=== PATIENT | female | born 1955 | race Caucasian/White ===

== ENCOUNTER 2020-08-06 10:15 | Outpatient (REF) | payer MEDICARE, SELFPAY ==
[2020-08-06 12:12] LABS: Alanine Aminotransferase 30 U/L (0-31); Albumin Level 4.8 g/dL (3.5-5.0); Alkaline Phosphatase 55 U/L (39-117); Anion Gap 17 (12-20); Aspartate Amino Transferase 30 U/L (5-31); Bilirubin Total 0.4 mg/dL (0.0-1.0); Blood Urea Nitrogen 13 mg/dL (9-16); Carbon Dioxide 26 mmol/L (22-29); Chloride 94 mmol/L (96-108); Cholesterol 270 mg/dL; Estimated Glomerular Filt Rate > 60; Glucose Fasting 87 mg/dL (60-99); HDL Cholesterol 120 mg/dL; LDL Cholesterol Calculated 142 mg/dl; Sodium 132 mmol/L (135-145); Total Protein 7.6 g/dL (6.5-8.0); Triglycerides 40 mg/dL
== END 2020-08-06 10:16 | disposition home or self-care (01) ==
LOC: HO.HMGCLDS 10:15
PROVIDERS: PCP Internal Medicine; Visit Provider Internal Medicine
DX: F32.9 Major depressive disorder, single episode, unspecified (principal); E78.5 Hyperlipidemia, unspecified
CPT/HCPCS: 80053; 80061

== ENCOUNTER 2020-08-15 11:40 | Outpatient (REF) | payer MEDICARE, SELFPAY ==
[2020-08-15 14:39] LABS: Anion Gap 18 (12-20); Blood Urea Nitrogen 9 mg/dL (9-16); Calcium 9.6 mg/dL (8.4-10.2); Carbon Dioxide 26 mmol/L (22-29); Chloride 91 mmol/L (96-108); Estimated Glomerular Filt Rate > 60; Glucose Random 80 mg/dL (60-115); Potassium 4.9 mmol/l (3.3-5.1); Sodium 130 mmol/L (135-145)
== END 2020-08-15 11:41 | disposition home or self-care (01) ==
LOC: HO.HMGCLDS 11:40
PROVIDERS: PCP Internal Medicine; Visit Provider Internal Medicine
DX: E87.1 Hypo-osmolality and hyponatremia (principal)
CPT/HCPCS: 80048

== ENCOUNTER 2021-04-10 07:41 | Outpatient (REF) | payer MEDICARE, SELFPAY ==
--- NOTE | ~2021-04-10 | XR_ITS ---
EXAMINATION: XR PELVIS XR HIP, LEFT HIP CLINICAL INFORMATION: Left hip pain COMPARISON: CT abdomen and pelvis of 06/10/2018 TECHNIQUE: AP pelvis and 2 views of the left hip FINDINGS: There is no evidence of acute fracture or diastases of the pelvis. There is mild spurring of the sacroiliac joints without evidence of fusion or widening. Hip joint spaces appear maintained. No destructive bony lesion appreciated. Vascular calcifications are present. Two views of the left hip do not demonstrate any evidence of acute fracture or dislocation. Hip joint space appears maintained. No destructive lytic or sclerotic lesion identified. No evidence of femoral head collapse. Minimal spurring is present. XR/XR hip LT min 2V IMPRESSION: No significant bony abnormality of the pelvis or left hip identified.
--- NOTE | ~2021-04-10 | XR_ITS ---
EXAMINATION: XR PELVIS XR HIP, LEFT HIP CLINICAL INFORMATION: Left hip pain COMPARISON: CT abdomen and pelvis of 06/10/2018 TECHNIQUE: AP pelvis and 2 views of the left hip FINDINGS: There is no evidence of acute fracture or diastases of the pelvis. There is mild spurring of the sacroiliac joints without evidence of fusion or widening. Hip joint spaces appear maintained. No destructive bony lesion appreciated. Vascular calcifications are present. Two views of the left hip do not demonstrate any evidence of acute fracture or dislocation. Hip joint space appears maintained. No destructive lytic or sclerotic lesion identified. No evidence of femoral head collapse. Minimal spurring is present. XR/XR pelvis 1-2V IMPRESSION: No significant bony abnormality of the pelvis or left hip identified.
== END 2021-04-10 07:42 | disposition home or self-care (01) ==
LOC: HO.HOSX 07:41
PROVIDERS: Visit Provider Physician Assistant
DX: M54.30 Sciatica, unspecified side (principal); M70.62 Trochanteric bursitis, left hip; M16.12 Unilateral primary osteoarthritis, left hip; M25.552 Pain in left hip
CPT/HCPCS: 72170; 73502; 99202

== ENCOUNTER 2021-05-21 10:38 | Outpatient (REF) | payer MEDICARE, SELFPAY ==
--- NOTE | ~2021-05-21 | MM_ITS ---
EXAMINATION: MM SCREENING DIGITAL BREAST TOMOSYNTHESIS, BILATERAL CLINICAL INFORMATION: Screening. Asymptomatic. The lifetime risk of breast cancer based on the Tyrer-Cuzick Model is 2%. COMPARISON: Mammography: 04/04/2018 TECHNIQUE: Digital breast tomosynthesis is performed in both the craniocaudal and mediolateral oblique views along with computer-aided detection (CAD). Synthesized 2D images are generated from the tomosynthesis. FINDINGS: There are scattered areas of fibroglandular density (ACR BI-RADS breast composition Category b). Breast tissue composition borders on heterogeneously dense. Parenchymal pattern is similar to prior exam. There is no interval mass or architectural abnormality. No abnormal calcifications. The axilla and skin contours are unremarkable. MM/MM tomosynthesis screening BI IMPRESSION: No mammographic evidence of malignancy. ASSESSMENT: BI-RADS 1: Negative RECOMMENDATION: Routine annual mammography screening. This patient's information was entered into a reminder system with a target due date for their next mammogram.
== END 2021-05-21 10:39 | disposition home or self-care (01) ==
LOC: HO.MAMMO 10:38
PROVIDERS: PCP Internal Medicine; Visit Provider Internal Medicine
DX: Z12.31 Encounter for screening mammogram for malignant neoplasm of breast (principal)
CPT/HCPCS: 77063; 77067

== ENCOUNTER 2021-06-24 08:29 | Outpatient (REF) | payer MEDICARE, SELFPAY ==
[2021-06-24 12:36] LABS: Alanine Aminotransferase 23 U/L (0-31); Albumin Level 4.7 g/dL (3.5-5.0); Alkaline Phosphatase 58 U/L (39-117); Anion Gap 15 (12-20); Aspartate Amino Transferase 29 U/L (5-31); Bilirubin Total 0.4 mg/dL (0.0-1.0); Blood Urea Nitrogen 13 mg/dL (9-16); Carbon Dioxide 27 mmol/L (22-29); Chloride 97 mmol/L (96-108); Cholesterol 252 mg/dL; Estimated Glomerular Filt Rate > 60; Glucose Fasting 77 mg/dL (60-99); HDL Cholesterol 127 mg/dL; LDL Cholesterol Calculated 118 mg/dl; Potassium 4.9 mmol/L (3.3-5.1); Sodium 134 mmol/L (135-145); Total Protein 7.3 g/dL (6.5-8.0); Triglycerides 38 mg/dL
== END 2021-06-24 08:30 | disposition home or self-care (01) ==
LOC: HO.HMGCLDS 08:29
PROVIDERS: PCP Internal Medicine; Visit Provider Internal Medicine
DX: E78.5 Hyperlipidemia, unspecified (principal); F32.9 Major depressive disorder, single episode, unspecified
CPT/HCPCS: 36415; 80053; 80061

== ENCOUNTER 2022-02-12 08:28 | Outpatient (REF) | payer MEDICARE, SELFPAY ==
[2022-02-12 11:30] LABS: Hematocrit 38.3 % (37.0-47.0); Hemoglobin 12.7 g/dl (12.0-16.0); Mean Corpuscular HGB Conc 33.2 g/dl (31.0-35.0); Mean Corpuscular Hemoglobin 32.2 pg (27.0-33.0); Mean Corpuscular Volume 97.2 fL (80.0-98.0); Mean Platelet Volume 11.1 fL (9.4-12.3); Platelet Count 204 X10*3/uL (160-400); Red Blood Count 3.94 X10*6/uL (4.20-5.50); Red Cell Distribution Width 12.2 % (11.0-16.0); White Blood Count 5.4 X10*3/uL (4.8-10.8)
[2022-02-12 11:35] LABS: Appearance Urine CLEAR; Color Urine YELLOW; Glucose Urine UA NEG (NEG); Leukocyte Esterase Urine 1+ (NEG); Nitrite Urine NEG (NEG); Specific Gravity - Urine 1.015 (1.005-1.025); Urine Blood TRACE (NEG); Urine Ketones 5 MG/DL (NEG); Urine Protein NEG (NEG-TRACE)
[2022-02-12 12:09] LABS: Alanine Aminotransferase 28 U/L (0-31); Albumin Level 4.7 g/dL (3.5-5.0); Alkaline Phosphatase 51 U/L (39-117); Anion Gap 18 (12-20); Aspartate Amino Transferase 32 U/L (5-31); Bilirubin Total 0.5 mg/dL (0.0-1.0); Blood Urea Nitrogen 11 mg/dL (9-16); Calcium 10.2 mg/dL (8.4-10.2); Carbon Dioxide 25 mmol/L (22-29); Chloride 100 mmol/L (96-108); Cholesterol 250 mg/dL; Estimated Glomerular Filt Rate > 60; Glucose Fasting 79 mg/dL (60-99); HDL Cholesterol 112 mg/dL; LDL Cholesterol Calculated 128 mg/dl; Potassium 5.3 mmol/L (3.3-5.1); Sodium 138 mmol/L (135-145); Total Protein 7.5 g/dL (6.5-8.0); Triglycerides 51 mg/dL
[2022-02-12 12:25] LABS: TSH reflex Free T4 1.17 uIU/mL (0.32-4.0)
[2022-02-12 13:49] LABS: Squamous Epithelial Cell Urine 1+ /LPF
== END 2022-02-12 08:29 | disposition home or self-care (01) ==
LOC: HO.HMGCLDS 08:28
PROVIDERS: Visit Provider Internal Medicine
DX: E87.1 Hypo-osmolality and hyponatremia (principal); E78.5 Hyperlipidemia, unspecified
CPT/HCPCS: 36415; 80053; 80061; 81001; 84443; 85027

== ENCOUNTER 2022-02-20 12:51 | Outpatient (REF) | payer MEDICARE, SELFPAY ==
--- NOTE | ~2022-02-20 | CT_ITS ---
EXAMINATION: CT CHEST SCREENING CLINICAL INFORMATION: Former smoker COMPARISON: Previous chest CT May 2020 TECHNIQUE: Multidetector volumetric CT imaging of the chest is performed without contrast using low dose technique. Additional 2D coronal and sagittal reformatted images and axial 3D maximum intensity projection (MIP) images are generated on the CT workstation. This CT examination was performed using dose optimization techniques as appropriate, variously including the following: *Automated exposure control *Adjustment of mA and/or kV according to patient size (this includes techniques or standardized protocols for targeted exams where dose is matched to indication/reason for exam; i.e. extremities or head) *Use of iterative reconstruction technique DLP: 36 mGy-cm FINDINGS: LUNGS: There is evidence of emphysema. There is bilateral apical pleural and parenchymal scarring, right greater than left, that is stable. There is a 3 mm peripheral or subpleural left upper lobe nodule axial image 94 series 5. There is a 4 mm peripheral or subpleural right lower lobe nodule adjacent to the major fissure axial image 227 series 5. There is a new 1 cm triangular-shaped abnormal parenchymal density axial image 281 series 5 seen in the anterior right upper middle lobe and small clustered peribronchial nodules or tree-in-bud appearance. This is new finding from 2020 exam. No endobronchial or endotracheal lesion MEDIASTINUM: The mediastinum is normal. PLEURA: There is no pleural effusion. No pleural mass or thickening. AXILLA: No lymphadenopathy. UPPER ABDOMEN: Unremarkable OSSEOUS STRUCTURES: There are degenerative changes of the spine. CT/CT lung screening IMPRESSION: Emphysema. New 1 cm triangular-shaped abnormal parenchymal density and clustered peribronchial nodules or tree-in-bud appearance. Probably represents infectious or inflammatory process/airways disease. Otherwise stable small pulmonary nodules. ASSESSMENT: Lung-RADS category 3: Probably Benign RECOMMENDATION: Six-month low-dose chest CT follow-up recommended.
== END 2022-02-20 12:52 | disposition home or self-care (01) ==
LOC: HO.CT 12:51
PROVIDERS: PCP Internal Medicine; Visit Provider Physician Assistant Medical
DX: Z12.2 Encounter for screening for malignant neoplasm of respiratory organs (principal); Z87.891 Personal history of nicotine dependence
CPT/HCPCS: 71271

== ENCOUNTER 2022-05-25 10:24 | Outpatient (REF) | payer MEDICARE, SELFPAY ==
--- NOTE | ~2022-05-25 | MM_ITS ---
EXAMINATION: MM SCREENING DIGITAL BREAST TOMOSYNTHESIS, BILATERAL CLINICAL INFORMATION: Screening. Asymptomatic. The lifetime risk of breast cancer based on the Tyrer-Cuzick Model is 2.8%. COMPARISON: Mammography: May 21, 2021 and April 04, 2018 TECHNIQUE: Digital breast tomosynthesis is performed in both the craniocaudal and mediolateral oblique views along with computer-aided detection (CAD). Synthesized 2D images are generated from the tomosynthesis. FINDINGS: The breasts are heterogeneously dense, which may obscure small masses (ACR BI-RADS breast composition Category c). There are no significant masses, abnormal calcifications, or other abnormalities. MM/MM tomosynthesis screening BI IMPRESSION: No significant changes ASSESSMENT: BI-RADS 1: Negative RECOMMENDATION: Routine annual mammography screening. This patient's information was entered into a reminder system with a target due date for their next mammogram.
== END 2022-05-25 10:25 | disposition home or self-care (01) ==
LOC: HO.MAMMO 10:24
PROVIDERS: PCP Internal Medicine; Visit Provider Internal Medicine
DX: Z12.31 Encounter for screening mammogram for malignant neoplasm of breast (principal)
CPT/HCPCS: 77063; 77067

== ENCOUNTER 2023-02-17 07:58 | Outpatient (REF) | payer MEDICARE, SELFPAY ==
[2023-02-17 11:58] LABS: Hematocrit 38.8 % (37.0-47.0); Hemoglobin 13.3 g/dl (12.0-16.0); Mean Corpuscular HGB Conc 34.3 g/dl (31.0-35.0); Mean Corpuscular Hemoglobin 32.8 pg (27.0-33.0); Mean Corpuscular Volume 95.6 fL (80.0-98.0); Mean Platelet Volume 10.9 fL (9.4-12.3); Platelet Count 208 X10*3/uL (160-400); Red Blood Count 4.06 X10*6/uL (4.20-5.50); Red Cell Distribution Width 11.9 % (11.0-16.0); White Blood Count 5.3 X10*3/uL (4.8-10.8)
[2023-02-17 13:12] LABS: Alanine Aminotransferase 53 U/L (0-31); Albumin Level 4.8 g/dL (3.5-5.0); Alkaline Phosphatase 55 U/L (39-117); Anion Gap 15 (12-20); Aspartate Amino Transferase 59 U/L (5-31); Bilirubin Total 0.5 mg/dL (0.0-1.0); Blood Urea Nitrogen 12 mg/dL (9-16); Carbon Dioxide 26 mmol/L (22-29); Chloride 97 mmol/L (96-108); Cholesterol 257 mg/dL; Estimated Glomerular Filt Rate > 60; Glucose Fasting 81 mg/dL (60-99); HDL Cholesterol 112 mg/dL; LDL Cholesterol Calculated 131 mg/dl; Potassium 4.7 mmol/L (3.3-5.1); Sodium 133 mmol/L (135-145); Total Protein 7.5 g/dL (6.5-8.0); Triglycerides 71 mg/dL
[2023-02-17 13:17] LABS: TSH reflex Free T4 1.36 uIU/mL (0.32-4.0); Vitamin D 25-OH Total 79.2 ng/mL (>30)
== END 2023-02-17 07:59 | disposition home or self-care (01) ==
LOC: HO.HMGCLDS 07:58
PROVIDERS: PCP Internal Medicine; Visit Provider Internal Medicine
DX: Z00.00 Encounter for general adult medical examination without abnormal findings (principal); E55.9 Vitamin D deficiency, unspecified; E78.5 Hyperlipidemia, unspecified
CPT/HCPCS: 36415; 80053; 80061; 82306; 84443; 85027

== ENCOUNTER 2023-02-24 10:04 | Outpatient (REF) | payer MEDICARE, SELFPAY ==
--- NOTE | ~2023-02-24 | XR_ITS ---
EXAMINATION: XR KNEE, RIGHT CLINICAL INFORMATION: Pain COMPARISON: None available. TECHNIQUE: Four views of the right knee. FINDINGS: The tricompartment joint space is maintained normal. There is mild suprapatellar joint effusion. No loose bodies or bony erosive changes. No fracture or lytic process. Small anterior suprapatella enthesophyte seen. XR/XR knee RT 4V IMPRESSION: Mild suprapatellar joint effusion. No visible acute fracture, dislocation or subluxation seen.
[2023-02-24 12:50] LABS: Anion Gap 17 (12-20); Blood Urea Nitrogen 8 mg/dL (9-16); Calcium 9.9 mg/dL (8.4-10.2); Carbon Dioxide 24 mmol/L (22-29); Chloride 93 mmol/L (96-108); Estimated Glomerular Filt Rate > 60; Glucose Random 77 mg/dL (60-115); Potassium 4.8 mmol/L (3.3-5.1); Sodium 129 mmol/L (135-145)
== END 2023-02-24 10:05 | disposition home or self-care (01) ==
LOC: HO.HMGCX 10:04
PROVIDERS: PCP Internal Medicine; Visit Provider Internal Medicine
DX: F32.9 Major depressive disorder, single episode, unspecified (principal); E78.5 Hyperlipidemia, unspecified; E87.1 Hypo-osmolality and hyponatremia; M25.561 Pain in right knee
CPT/HCPCS: 36415; 73564; 80048

== ENCOUNTER 2023-04-19 08:06 | Outpatient (REF) | payer MEDICARE, SELFPAY ==
[2023-04-19 12:21] LABS: Alanine Aminotransferase 96 U/L (0-31); Albumin Level 4.6 g/dL (3.5-5.0); Alkaline Phosphatase 54 U/L (39-117); Anion Gap 17 (12-20); Aspartate Amino Transferase 82 U/L (5-31); Bilirubin Total 0.5 mg/dL (0.0-1.0); Blood Urea Nitrogen 9 mg/dL (9-16); Calcium 10.4 mg/dL (8.4-10.2); Carbon Dioxide 26 mmol/L (22-29); Chloride 97 mmol/L (96-108); Cholesterol 258 mg/dL; Estimated Glomerular Filt Rate > 60; Glucose Fasting 84 mg/dL (60-99); Glucose Random 84 mg/dL (60-115); HDL Cholesterol 114 mg/dL; LDL Cholesterol Calculated 133 mg/dl; Potassium 4.5 mmol/L (3.3-5.1); Sodium 135 mmol/L (135-145); Total Protein 7.7 g/dL (6.5-8.0); Triglycerides 56 mg/dL
[2023-04-19 12:46] LABS: HBc Num1 0.08 S/CO (0.00-0.79); HBsAGNum1 0.38 S/CO (0.00-0.99); Hepatitis B Core Antibody Nonreactive (Nonreactive); Hepatitis B Surface Antigen Negative (Negative); ~HepC Num1 0.06 S/CO (0.00-0.79); ~Hepatitis B Surface Antibody NONREACTIVE (Nonreactive); ~Hepatitis C Antibody Nonreactive (Nonreactive)
== END 2023-04-19 08:07 | disposition home or self-care (01) ==
LOC: HO.HMGCLDS 08:06
PROVIDERS: PCP Internal Medicine; Visit Provider Internal Medicine
DX: E87.1 Hypo-osmolality and hyponatremia (principal); F32.9 Major depressive disorder, single episode, unspecified; E78.5 Hyperlipidemia, unspecified
CPT/HCPCS: 36415; 80048; 80053; 80061; 86704; 86706; 86803; 87340

== ENCOUNTER 2023-04-26 11:13 | Outpatient (AMB) | payer MEDICARE, SELFPAY ==
[2023-04-26 11:18] VITALS: BP 124/74; PULSE 78; O2SAT 95; BMI 22.3
--- NOTE | 2023-04-26 11:18 | MHC.PC.OV ---
Vital Signs 04/26/23 11:18 Height 5 ft 3 in Weight 126 lb BMI 22.3 BP 124/74 Blood Pressure Location Lt brachial Position Sitting Pulse 78 Pulse Source Pulse Oximeter Pulse Oximetry (%) 95 Oxygen Delivery Method Room Air Oxygen Flow Rate 0 Intake Visit Reasons: 2 Month follow up Hyperlipidemia Allergies No Known Allergies [No Known Allergies*] Allergy (Verified 04/26/23 11:18) Medication List - Last Reconciled 04/26/23 by Nataliia Christine MD cetirizine 10 mg PO DAILY fluoxetine 20 mg PO QAM rosuvastatin (Crestor) 20 mg PO DAILY Tobacco use date assessed: 04/26/23 Fall risk assessment: No Falls in past year Last assessed Fall Risk: 04/26/23 Dental Screening Dental Screen Date: 04/26/23 Did you have a dental visit in the last 12 months?: Yes Did you have a dental problem in the last 6 months where you did not have access to dental care?: No Was dental information given to patient?: No HPI 2 Month follow up Hyperlipidemia HPI Details Pt presents for f/u hyperlipidemia and chronic anxiety depression stable on current medications. Patient crease dose of Crestor to 20 mg but has been eating red meat at least 3 times a week and there is no significant change in total cholesterol PFSH Medical History Depression Emphysema of lung GERD (gastroesophageal reflux disease) Hyperlipemia Hyponatremia Mammogram normal Normal Pap smear Osteopenia (~2017) Personal history of nicotine dependence Tobacco consumption Vitamin D deficiency Surgical History History of bunionectomy (~2009) History of colonoscopy Family History Father No problems noted. Mother No problems noted. Brother Hx of CABG Brother No problems noted. Social History Housing: House Alcohol intake: current Alcohol intake frequency: a few times a week Patient Tobacco Use Status: Never used Tobacco e-Cigarette/Vaping Use: Never Used service: No Current occupational status: retired Current occupation: rt handed Cognitive needs: No Hearing needs: No Vision needs: Yes Questionnaire AUDIT C Alcohol Use Questionnaire (AUDIT-C) 1. How often do you have a drink containing alcohol?: Monthly or less 2. How many drinks containing alcohol do you have on a typical day when you are drinking?: 1 or 2 3. How often do you have six or more drinks on one occasion?: Never Total Score: 1 Score Reviewed/Action Taken: Yes Review of Systems Const All systems reviewed & are unremarkable except as noted in HPI and below Reports no additional complaints Eyes Reports no additional complaints ENT Reports no additional complaints Card Reports no additional complaints Resp Reports no additional complaints GI Reports no additional complaints Reports no additional complaints Physical exam (Primary Care) Vital Signs: Last Vital Signs Pulse 78 04/26/23 11:18 BP 124/74 04/26/23 11:18 Pulse Ox 95 04/26/23 11:18 Oxygen Delivery Method Room Air 04/26/23 11:18 Oxygen Flow Rate 0 04/26/23 11:18 BMI result Body Mass Index 22.3 Tobacco/Smoking Status: Tobacco use Status Tobacco use date assessed 04/26/23 04/26/23 11:20 Patient Tobacco Use Status Never used Tobacco 04/26/23 11:22 e-Cigarette/Vaping Use Never Used 04/26/23 11:22 Const General: no acute distress Neck Neck: Yes supple Resp Effort & Inspection: normal respiratory effort Auscultation: diminished lung sounds Cardio Rhythm: regular rhythm Heart sounds: S1 normal heart sound present and S2 normal heart sound present GI Inspection: Yes normal to inspection Palpation (GI): Soft to palpation Auscultation: normal bowel sounds Assessment and Plan Assessment & Plan (1) Liver enzyme elevation: Code(s): R74.8 - Abnormal levels of other serum enzymes Plan: For borderline elevated LFTs ultrasound will be obtained patient was advised to stop [id number] NSAIDs and Tylenol and avoid alcohol. LFTs will be rechecked in 3 months (2) Hyperlipemia: Code(s): E78.5 - Hyperlipidemia, unspecified Plan: Continue Crestor and low-cholesterol diet recheck lipid profile in 3 months (3) Osteopenia: Onset Date: ~2017 Comment: (Bone Dexa Femoral T-score -1.7 in 2018, -2.0 in 2020) Code(s): M85.80 - Other specified disorders of bone density and structure, unspecified site Plan: Continue regular exercise (4) Vitamin D deficiency: Code(s): E55.9 - Vitamin D deficiency, unspecified (5) Anxiety: Code(s): F41.9 - Anxiety disorder, unspecified Plan: cont Fluoxetine, f/u in January for PE Orders: Orders US abdomen complete Today R74.8 - Abnormal levels of other serum enzymes Comprehensive [place]. Panel Fast 3 Months E78.5 - Hyperlipidemia, unspecified, R74.8 - Abnormal levels of other serum enzymes Lipid Panel 3 Months E78.5 - Hyperlipidemia, unspecified, R74.8 - Abnormal levels of other serum enzymes Hepatitis B,C Profile 3 Months E78.5 - Hyperlipidemia, unspecified, R74.8 - Abnormal levels of other serum enzymes Comprehensive [place]. Panel Fast 01/17/24 E55.9 - Vitamin D deficiency, unspecified, E78.5 - Hyperlipidemia, unspecified, M85.80 - Other specified disorders of bone density and structure, unspecified site, R74.8 - Abnormal levels of other serum enzymes Lipid Panel 01/17/24 E55.9 - Vitamin D deficiency, unspecified, E78.5 - Hyperlipidemia, unspecified, M85.80 - Other specified disorders of bone density and structure, unspecified site, R74.8 - Abnormal levels of other serum enzymes TSH reflex Free T4 01/17/24 E55.9 - Vitamin D deficiency, unspecified, E78.5 - Hyperlipidemia, unspecified, M85.80 - Other specified disorders of bone density and structure, unspecified site, R74.8 - Abnormal levels of other serum enzymes Complete Blood Count Auto Diff 01/17/24 E55.9 - Vitamin D deficiency, unspecified, E78.5 - Hyperlipidemia, unspecified, M85.80 - Other specified disorders of bone density and structure, unspecified site, R74.8 - Abnormal levels of other serum enzymes Vitamin D 25-OH Total 01/17/24 E55.9 - Vitamin D deficiency, unspecified, E78.5 - Hyperlipidemia, unspecified, M85.80 - Other specified disorders of bone density and structure, unspecified site, R74.8 - Abnormal levels of other serum enzymes Medications: Discontinued rosuvastatin (Crestor) Discontinued Reason: Doctor's Order 10 mg PO DAILY 90 tabs 3RF Coding Level of Care Code Est Pt Level 4 (11766) Diagnoses Liver enzyme elevation R74.8 Hyperlipemia E78.5 Osteopenia M85.80 Vitamin D deficiency E55.9 Anxiety F41.9
== END 2023-04-26 12:12 | disposition home or self-care (01) ==
PROVIDERS: PCP Internal Medicine; Visit Provider Internal Medicine
DX: R74.8 Abnormal levels of other serum enzymes (principal); E78.5 Hyperlipidemia, unspecified; F41.9 Anxiety disorder, unspecified; E55.9 Vitamin D deficiency, unspecified; M85.80 Other specified disorders of bone density and structure, unspecified site
CPT/HCPCS: 99214

== ENCOUNTER 2023-05-27 09:07 | Outpatient (REF) | payer MEDICARE, SELFPAY ==
--- NOTE | ~2023-05-27 | MM_ITS ---
EXAMINATION: BONE DENSITOMETRY CLINICAL INDICATION: Other specified disorders of bone density and structure, unspecified site. COMPARISON: Previous BD dated 06/07/2020 and baseline BD dated 05/24/2018. TECHNIQUE: Using a 1EQ DXA System (software version: 13.1) manufactured by [employer], dual-energy x-ray absorptiometry was performed of the lumbar spine and left hip. The images are of good technical quality. Summary results are attached. FINDINGS: AP SPINE L1-L4: Current: BMD 1.088 g/cm2, Z-score 1.2, T-score -0.8, normal, 0.3% increase from previous, 2.0% increase from baseline (<5% change is not significant). Prior: BMD 1.085 g/cm2. Baseline: BMD 1.067 g/cm2. LEFT FEMUR, NECK: Current: BMD 0.764 g/cm2, Z-score -0.1, T-score -2.0, osteopenia. Prior: BMD 0.755 g/cm2. Baseline: BMD 0.807 g/cm2. LEFT FEMUR, TOTAL: Current: BMD 0.867 g/cm2, Z-score 0.6, T-score -1.1, osteopenia, 1.9% decrease from previous, 2.0% decrease from baseline (<5% change is not significant). Prior: BMD 0.884 g/cm2. Baseline: BMD 0.885 g/cm2. IDENTIFIED RISK FACTORS: Parental hip fracture. Menopause. HISTORY OF FRACTURE: None listed. MEDICATIONS: Calcium supplement and/or multivitamin. MM/XR DEXA axial skeleton IMPRESSION: 1. DIAGNOSIS: Osteopenia based on the lowest T-score value of -2.0 in the femoral neck applying World Health Organization criteria. 2. 10-YEAR FRACTURE RISK PREDICTION, FRAX: Major osteoporotic fracture (clinical spine, forearm, hip or shoulder) 18.1%. Hip fracture 4.8%. 3. Treatment Recommendations: NOF guidelines recommend consideration for treatment in postmenopausal women and men age 50 and older presenting with the following: -A hip or vertebral (clinical or morphometric) fracture. -T-score less than or equal to -2.5 at the femoral neck or spine after appropriate evaluation to exclude secondary causes. -Low bone mass at the hip or spine and a 10-year fracture probability by FRAX of greater than or equal to 3% for hip fracture or greater than or equal to 20% for major osteoporotic fracture based on the [place] adapted WHO algorithm. 4. Other Recommendations: All treatment decisions require clinical judgment and consideration of individual patient factors, including patient preferences, comorbidities, previous drug use, risk factors not captured in the FRAX model (e.g. frailty, falls, vitamin D deficiency, increased bone turnover, interval significant decline in bone density) and possible under or overestimation of fracture risk by FRAX. Additional medical evaluation for secondary cause of low bone mineral density may be appropriate. FUTURE SCAN RECOMMENDATION: People with diagnosed cases of osteoporosis or at high risk for fracture should have regular bone mineral density tests. For patients eligible for Medicare, routine testing is allowed once every 2 years. The testing frequency can be increased to one year for patients who have rapidly progressing disease, those who are receiving or discontinuing medical therapy to restore bone mass, or have additional risk factors.
== END 2023-05-27 09:08 | disposition home or self-care (01) ==
LOC: HO.MAMMO 09:07
PROVIDERS: PCP Internal Medicine; Visit Provider Internal Medicine
DX: Z12.31 Encounter for screening mammogram for malignant neoplasm of breast (principal); Z13.820 Encounter for screening for osteoporosis; Z78.0 Asymptomatic menopausal state; M85.80 Other specified disorders of bone density and structure, unspecified site; E55.9 Vitamin D deficiency, unspecified
CPT/HCPCS: 77063; 77067; 77080

== ENCOUNTER → 2023-05-27 09:45 | Outpatient (BNV) | payer MEDICARE, SELFPAY | PROVIDERS: PCP Internal Medicine; Visit Provider Radiology Diagnostic Radiology | DX: Z12.31 Encounter for screening mammogram for malignant neoplasm of breast (principal) | CPT/HCPCS: 77063; 77067; 77080 ==

== ENCOUNTER 2024-02-22 07:56 | Outpatient (REF) | payer MEDICARE, SELFPAY ==
[2024-02-22 10:33] LABS: MANUAL DIFF FLAG NO
[2024-02-22 10:38] LABS: Basophils Percent Auto 0.6 % (0-2); Eosinophils Absolute Auto 0.2 X10*3/uL (0.0-0.4); Eosinophils Percent Auto 4.2 % (0-4); Hematocrit 35.6 % (37.0-47.0); Hemoglobin 11.9 g/dl (12.0-16.0); Imm Gran Abs Auto 0.01 X10*3/uL (0.00-0.03); Imm Gran Pct Auto 0.2 % (0.0-0.4); Lymphocytes Absolute Auto 1.6 X10*3/uL (1.2-4.9); Lymphocytes Percent Auto 31.9 % (20-40); Mean Corpuscular HGB Conc 33.4 g/dl (31.0-35.0); Mean Corpuscular Hemoglobin 32.2 pg (27.0-33.0); Mean Corpuscular Volume 96.2 fL (80.0-98.0); Mean Platelet Volume 10.6 fL (9.4-12.3); Monocytes Absolute Auto 0.8 X10*3/uL (0.1-1.2); Monocytes Percent Auto 15.3 % (2-11); Neutrophils Absolute Auto 2.4 x10*3/uL (2.0-8.3); Neutrophils Percent Auto 47.8 % (45-73); Platelet Count 231 X10*3/uL (160-400); Red Cell Distribution Width 12.3 % (11.0-16.0)
[2024-02-22 11:23] LABS: Alanine Aminotransferase 27 U/L (0-31); Albumin Level 4.2 g/dL (3.5-5.0); Alkaline Phosphatase 51 U/L (39-117); Anion Gap 13 (12-20); Aspartate Amino Transferase 29 U/L (5-31); Bilirubin Total 0.3 mg/dL (0.0-1.0); Blood Urea Nitrogen 11 mg/dL (9-16); Calcium 9.8 mg/dL (8.4-10.2); Carbon Dioxide 27 mmol/L (22-29); Chloride 103 mmol/L (96-108); Cholesterol 217 mg/dL (<200); Estimated Glomerular Filt Rate > 60; Glucose Fasting 103 mg/dL (60-99); HDL Cholesterol 85 mg/dL (>40); LDL Cholesterol Calculated 120 mg/dL (<100); Potassium 4.4 mmol/L (3.3-5.1); Sodium 139 mmol/L (135-145); TSH reflex Free T4 1.67 uIU/mL (0.32-4.0); Total Protein 7.6 g/dL (6.5-8.0); Triglycerides 60 mg/dL (<150); Vitamin D 25-OH Total 67.6 ng/mL (>30)
[2024-02-22 11:26] LABS: HBS Num1 0.28 mIU/mL (0-7.99); HBc Num1 0.13 S/CO (0.00-0.79); HBsAGNum1 0.36 S/CO (0.00-0.99); Hepatitis B Core Antibody Nonreactive (Nonreactive); Hepatitis B Surface Antigen Negative (Negative); ~HepC Num1 0.08 S/CO (0.00-0.79); ~Hepatitis B Surface Antibody NONREACTIVE (Nonreactive); ~Hepatitis C Antibody Nonreactive (Nonreactive)
== END 2024-02-22 07:57 | disposition home or self-care (01) ==
LOC: HO.HMGCLDS 07:56
PROVIDERS: PCP Internal Medicine; Visit Provider Internal Medicine
DX: E55.9 Vitamin D deficiency, unspecified (principal); R74.8 Abnormal levels of other serum enzymes; M85.80 Other specified disorders of bone density and structure, unspecified site; E78.5 Hyperlipidemia, unspecified
CPT/HCPCS: 36415; 80053; 80061; 82306; 84443; 85025; 86704; 86706; 86803; 87340

== ENCOUNTER 2024-02-29 11:29 | Outpatient (AMB) | payer MEDICARE, SELFPAY ==
[2024-02-29 11:32] VITALS: BP 124/68; PULSE 77; O2SAT 98; BMI 22.7
--- NOTE | 2024-02-29 11:32 | A.OFFPC_ITS ---
Vital Signs 02/29/24 11:32 Height 5 ft 3 in Weight 128 lb BMI 22.7 BP 124/68 Blood Pressure Location Rt brachial Position Sitting Pulse 77 Pulse Source Pulse Oximeter Pulse Oximetry (%) 98 Oxygen Delivery Method Room Air Intake Visit Reasons: Annual PE - see comments Intake Note: Pt is here today for a PE. Allergies No Known Allergies [No Known Allergies*] Allergy (Verified 02/29/24 11:41) Medication List - Last Reconciled 02/29/24 by Nataliia Christine MD cetirizine 10 mg PO DAILY fluoxetine 20 mg PO QAM rosuvastatin (Crestor) 20 mg PO DAILY Tobacco use date assessed: 02/29/24 Fall risk assessment: No Falls in past year Last assessed Fall Risk: 02/29/24 Dental Screening Dental Screen Date: 02/29/24 Did you have a dental visit in the last 12 months?: Yes Did you have a dental problem in the last 6 months where you did not have access to dental care?: No Was dental information given to patient?: Patient has dentist HPI Annual PE - see comments HPI Details Pt presents for PE. Pt c/o diarrhea and abd discomfort after taking Augmentin 2 weeks ago for sinusitis and bronchitis. Patient denies fever chills nausea vomiting hematochezia melena PFSH Medical History Personal history of nicotine dependence Vitamin D deficiency Hyponatremia Normal Pap smear Mammogram normal Tobacco consumption Emphysema of lung Hyperlipemia GERD (gastroesophageal reflux disease) Depression Osteopenia (~2017) Surgical History History of bunionectomy (~2009) History of colonoscopy Family History Father No problems noted. Mother No problems noted. Brother Hx of CABG Brother No problems noted. Social History Housing: House Alcohol intake: current Alcohol intake frequency: a few times a week Patient Tobacco Use Status: Never used Tobacco e-Cigarette/Vaping Use: Never Used service: No Current occupational status: retired Current occupation: rt handed Cognitive needs: No Hearing needs: No Vision needs: Yes Questionnaire PHQ-9 Over the last 2 weeks, how often have you been bothered by any of the following problems? 1. Little interest or pleasure in doing things: not at all 2. Feeling down, depressed, or hopeless: not at all 3. Trouble falling or staying asleep, or sleeping too much: not at all 4. Feeling tired or having little energy: not at all 5. Poor appetite or overeating: not at all 6. Feeling bad about yourself - or that you are a failure or have let yourself or your family down: not at all 7. Trouble concentrating on things, such as reading the newspaper or watching television: not at all 8. Moving or speaking so slowly that other people could have noticed. Or the opposite - being so fidgety or restless that you have been moving around a lot more than usual: not at all 9. Thoughts that you would be better off or of hurting yourself in some way: not at all Total score: 0 Depression Screening Interpretation: Negative Depression Screening Done: Yes Source: Developed by Drs. Guanaco Murry, Precious Burch, Marquis Ball and colleagues, with an educational robin from [employer]. Thrive Questionnaire Date Thrive assessed: 02/29/24 I am a: Patient What is your living situation today?: I have a steady place to live Within the past 12 months, did the food you bought not last and you didn't have the money to get more?: Never true Within the past 12 months, did you worry whether your food would run out before you got money to buy more?: Never true Do you have trouble paying for medicines?: No Do you have trouble getting transportation to medical appointments?: No Do you have trouble paying your heating and electricity bill?: No Do you have trouble taking care of your child, family member or friend?: No Do you have trouble with day-to-day activities such as bathing, preparing meals, shopping, managing finances, etc.?: No Are you currently unemployed and looking for a job?: No Are you interested in more education?: No THRIVE Score: 0 AUDIT C Alcohol Use Questionnaire (AUDIT-C) 1. How often do you have a drink containing alcohol?: 2-3 times a week 2. How many drinks containing alcohol do you have on a typical day when you are drinking?: 1 or 2 3. How often do you have six or more drinks on one occasion?: Never Total Score: 3 DALIA-7 AMB Questionnaire DALIA-7 Date DALIA - 7 assessed: 02/29/24 Feeling nervous, anxious, or on edge: 0 = Not at all Not being able to stop or control worryin = Not at all Worrying too much about different things: 0 = Not at all Trouble relaxin = Not at all Being so restless that it is hard to sit still: 0 = Not at all Becoming easily annoyed or irritable: 0 = Not at all Feeling afraid as if something awful might happen: 0 = Not at all Total DALIA-7 score (0-4 normal; 5-9 mild; 10-14 moderate; 15-21 severe): 0 Source: Developed by Drs. Guanaco Murry, Precious Burch, Marquis Ball and colleagues, with an educational robin from [employer]. Review of Systems Const All systems reviewed & are unremarkable except as noted in HPI and below Eyes Reports no additional complaints ENT Reports no additional complaints Card Reports no additional complaints Resp Reports no additional complaints Reports no additional complaints Physical exam (Primary Care) Vital Signs: Last Vital Signs Pulse 77 02/29/24 11:32 BP 124/68 02/29/24 11:32 Pulse Ox 98 02/29/24 11:32 Oxygen Delivery Method Room Air 02/29/24 11:32 BMI result Body Mass Index 22.7 Tobacco/Smoking Status: Tobacco use Status Tobacco use date assessed 02/29/24 02/29/24 11:44 Patient Tobacco Use Status Never used Tobacco 02/29/24 11:44 e-Cigarette/Vaping Use Never Used 02/29/24 11:44 PHQ-9: PHQ-9 Score PHQ-9: Total score 0 02/29/24 11:54 Depression Screening Interpretation: Negative Thrive Assessment: Date of Thrive Assessment Date Thrive assessed 02/29/24 02/29/24 11:54 Const General: no acute distress HENMT Head: Yes normal to inspection Face and sinus: Yes normal facial exam Throat: Yes posterior oropharynx normal Eyes General: appearance normal, both eyes and all related structures Neck Neck: Yes no lymphadenopathy and Yes supple Resp Effort & Inspection: normal respiratory effort Auscultation: clear to auscultation bilaterally Cardio Rhythm: regular rhythm Heart sounds: S1 normal heart sound present and S2 normal heart sound present GI Inspection: Yes normal to inspection Palpation (GI): Soft to palpation and No Rebound tenderness present Percussion: Yes normal to percussion Auscultation: normal bowel sounds Assessment and Plan Assessment & Plan (1) Anemia: Code(s): D64.9 - Anemia, unspecified Plan: For borderline anemia check iron count B12 and CRP level (2) Diarrhea: Code(s): R19.7 - Diarrhea, unspecified Plan: Check stool for C diff, supportive care including taking probiotics discussed with the patient (3) Annual physical exam: Code(s): Z00.00 - Encounter for general adult medical examination without abnormal findings Plan: Well-balanced diet regular exercise discussed with the patient she is up-to-date with the mammogram and colonoscopy (4) Emphysema of lung: Comment: chest CT 2019, mild emphysema mild coronary calcifications, bilateral apical pleural thickening, 4 mm stable noncalcified density right major fissure unchanged April 2018, lung ca screen annual [facility] [place] 02/23 Code(s): J43.9 - Emphysema, unspecified Plan: Follow-up with lung cancer screening program (5) Hyperlipemia: Code(s): E78.5 - Hyperlipidemia, unspecified Plan: Continue statin Orders: Orders C Reactive Protein Today R19.7 - Diarrhea, unspecified Comprehensive [place]. Panel Fast 1 Year E55.9 - Vitamin D deficiency, unspecified, E78.5 - Hyperlipidemia, unspecified, Z00.00 - Encounter for general adult medical examination without abnormal findings TSH reflex Free T4 1 Year E55.9 - Vitamin D deficiency, unspecified, E78.5 - Hyperlipidemia, unspecified, Z00.00 - Encounter for general adult medical examination without abnormal findings Vitamin D 25-OH Total 1 Year E55.9 - Vitamin D deficiency, unspecified, E78.5 - Hyperlipidemia, unspecified, Z00.00 - Encounter for general adult medical examination without abnormal findings IRON PROFILE Today D64.9 - Anemia, unspecified Vitamin B12 Today D64.9 - Anemia, unspecified CDiff Gene PCR Today R19.7 - Diarrhea, unspecified Complete Blood Count Auto Diff 1 Year E55.9 - Vitamin D deficiency, unspecified, E78.5 - Hyperlipidemia, unspecified, Z00.00 - Encounter for general adult medical examination without abnormal findings Lipid Panel 1 Year E55.9 - Vitamin D deficiency, unspecified, E78.5 - Hyperlipidemia, unspecified, Z00.00 - Encounter for general adult medical examination without abnormal findings Coding Level of Care Code Est Pt Prev Care >65y(55048) Diagnoses Anemia D64.9 Diarrhea R19.7 Annual physical exam Z00.00 Emphysema of lung J43.9 Hyperlipemia E78.5
== END 2024-02-29 12:19 | disposition home or self-care (01) ==
PROVIDERS: Visit Provider Internal Medicine
DX: D64.9 Anemia, unspecified (principal); R19.7 Diarrhea, unspecified; Z00.00 Encounter for general adult medical examination without abnormal findings; J43.9 Emphysema, unspecified; E78.5 Hyperlipidemia, unspecified
CPT/HCPCS: 99397

== ENCOUNTER 2024-02-29 12:13 | Outpatient (REF) | payer MEDICARE, SELFPAY ==
[2024-02-29 13:55] LABS: C Reactive Protein 0.37 mg/dL (< or = 0.50); Iron 113 mcg/dL (30-160); Percent Iron Saturation 39 % (15-50); Total Iron Binding Capacity 292 mcg/dL (228-428); Unsaturated Iron Binding 179 ug/dL
[2024-02-29 15:02] LABS: Vitamin B12 542 pg/mL (200-900)
== END 2024-02-29 12:14 | disposition home or self-care (01) ==
LOC: HO.HMGCLDS 12:13
PROVIDERS: PCP Internal Medicine; Visit Provider Internal Medicine
DX: D64.9 Anemia, unspecified (principal); R19.7 Diarrhea, unspecified
CPT/HCPCS: 36415; 82607; 83540; 86140

== ENCOUNTER 2024-03-01 08:57 | Outpatient (REF) | payer MEDICARE, SELFPAY ==
[2024-03-01 13:58] LABS: CDiff Gene PCR NEGATIVE (Negative)
== END 2024-03-01 08:58 | disposition home or self-care (01) ==
LOC: HO.HMGCLNP 08:57
PROVIDERS: PCP Internal Medicine; Visit Provider Internal Medicine
DX: R19.7 Diarrhea, unspecified (principal)
CPT/HCPCS: 87493

== ENCOUNTER 2024-06-01 09:16 | Outpatient (REF) | payer MEDICARE, SELFPAY ==
--- NOTE | ~2024-06-01 | MM_ITS ---
EXAMINATION: MM SCREENING DIGITAL BREAST TOMOSYNTHESIS, BILATERAL CLINICAL INFORMATION: Screening. Asymptomatic. COMPARISON: Mammography: Comparison is made with available priors TECHNIQUE: Digital breast tomosynthesis is performed in both the craniocaudal and mediolateral oblique views along with computer-aided detection (CAD). Synthesized 2D images are generated from the tomosynthesis. FINDINGS: The breasts are heterogeneously dense, which may obscure small masses (ACR BI-RADS breast composition Category c). There are no significant masses, abnormal calcifications, or other abnormalities. MM/MM tomosynthesis screening BI IMPRESSION: No mammographic evidence of malignancy. ASSESSMENT: BI-RADS BI-RADS 1 - Negative RECOMMENDATION: Routine annual mammography screening. 1 year F/U This examination should not preclude the clinical evaluation of a suspicious palpable abnormality. This patient's information was entered into a reminder system with a target due date for their next mammogram. Electronically signed by: Tarah Power DO 06/23/2024 09:03 PM EDT
== END 2024-06-01 09:17 | disposition home or self-care (01) ==
LOC: HO.MAMMO 09:16
PROVIDERS: PCP Internal Medicine; Visit Provider Internal Medicine
DX: Z12.31 Encounter for screening mammogram for malignant neoplasm of breast (principal)
CPT/HCPCS: 77063; 77067

== ENCOUNTER → 2024-06-01 09:30 | Outpatient (BNV) | payer MEDICARE, SELFPAY | PROVIDERS: PCP Internal Medicine; Visit Provider Internal Medicine | DX: Z12.31 Encounter for screening mammogram for malignant neoplasm of breast (principal) | CPT/HCPCS: 77063; 77067 ==

== ENCOUNTER 2025-03-20 08:22 | Outpatient (REF) | payer MEDICARE, SELFPAY ==
--- OUTSIDE RECORDS SUMMARY | 2025-03-20 08:34 | XMS_ITS | Encounter Summary ---
Author Organization [facility] Address [address] [place] [id number] Care Team Providers Care Program Coordinator Name Role Phone Charli Valerio MD Primary Care Provider [phone] Pcp, No Primary Care Provider Unavailabl e Encounter Details Date Type Department Care Team (Late st Contact Info) Description 03/09/2016 Scanned Document [address] [place] [address] [phone] Provider, Generic Social History Tobacco Use Types Packs/Day Years Used Date Smoking Tobacco: Light Smoker Smokeless Tobacco: Never Alcohol Use Standard Drinks/Week Comments Yes 10 (1 standard drink = 0.6 oz pu re alcohol) Comments Unknown Sex and Gender Information Value Date Recorded Sex Assigned at Not on file Legal Sex Female 12:18 PM EDT Gender Identity Not on file Sexual Orientation Not on file documented as of this encounter Plan of Treatment Not on file documented as of this encounter Visit Diagnoses Not on filedocumented in this encounter Care Teams Program Coordinator Relationship Specialty Start Date End Date Charli Valerio MD PCP - General Family Medicine 01/20/16 03/09/18 Pcp, No PCP - General General Medicine 03/10/18 documented as of this encounter
[2025-03-20 10:21] LABS: MANUAL DIFF FLAG NO
[2025-03-20 10:28] LABS: Basophils Percent Auto 0.6 % (0-2); Eosinophils Absolute Auto 0.2 X10*3/uL (0.0-0.4); Eosinophils Percent Auto 3.2 % (0-4); Hematocrit 37.5 % (37.0-47.0); Hemoglobin 12.6 g/dl (12.0-16.0); Imm Gran Abs Auto 0.01 X10*3/uL (0.00-0.03); Imm Gran Pct Auto 0.2 % (0.0-0.4); Lymphocytes Absolute Auto 1.7 X10*3/uL (1.2-4.9); Lymphocytes Percent Auto 31.7 % (20-40); Mean Corpuscular HGB Conc 33.6 g/dl (31.0-35.0); Mean Corpuscular Hemoglobin 31.9 pg (27.0-33.0); Mean Corpuscular Volume 94.9 fL (80.0-98.0); Mean Platelet Volume 10.1 fL (9.4-12.3); Monocytes Absolute Auto 0.7 X10*3/uL (0.1-1.2); Monocytes Percent Auto 13.9 % (2-11); Neutrophils Absolute Auto 2.7 x10*3/uL (2.0-8.3); Neutrophils Percent Auto 50.4 % (45-73); Platelet Count 201 X10*3/uL (160-400); Red Blood Count 3.95 X10*6/uL (4.20-5.50); Red Cell Distribution Width 12.3 % (11.0-16.0); White Blood Count 5.3 X10*3/uL (4.8-10.8)
[2025-03-20 11:25] LABS: Alanine Aminotransferase 37 U/L (0-31); Albumin Level 4.7 g/dL (3.5-5.0); Alkaline Phosphatase 61 U/L (39-117); Anion Gap 13 (12-20); Aspartate Amino Transferase 36 U/L (5-31); Bilirubin Total 0.5 mg/dL (0.0-1.0); Blood Urea Nitrogen 12 mg/dL (9-16); Carbon Dioxide 30 mmol/L (22-29); Chloride 100 mmol/L (96-108); Cholesterol 279 mg/dL (<200); Estimated Glomerular Filt Rate > 60; Glucose Fasting 87 mg/dL (60-99); HDL Cholesterol 106 mg/dL (>40); LDL Cholesterol Calculated 161 mg/dL (<100); Potassium 4.2 mmol/L (3.3-5.1); Sodium 139 mmol/L (135-145); Total Protein 7.6 g/dL (6.5-8.0); Triglycerides 63 mg/dL (<150)
[2025-03-20 11:28] LABS: TSH reflex Free T4 1.73 uIU/mL (0.32-4.0); Vitamin D 25-OH Total 107.7 ng/mL (>30)
== END 2025-03-20 08:23 | disposition home or self-care (01) ==
LOC: HO.HMGCLDS 08:22
PROVIDERS: PCP Internal Medicine; Visit Provider Internal Medicine
DX: Z00.00 Encounter for general adult medical examination without abnormal findings (principal); E55.9 Vitamin D deficiency, unspecified; E78.5 Hyperlipidemia, unspecified
CPT/HCPCS: 36415; 80053; 80061; 82306; 84443; 85025

== ENCOUNTER 2025-03-27 10:58 | Outpatient (AMB) | payer MEDICARE, SELFPAY ==
[2025-03-27 11:04] VITALS: BP 112/70; PULSE 82; TEMP 36.7; O2SAT 97; BMI 23.0
--- NOTE | 2025-03-27 11:04 | A.OFFPC_ITS ---
Vital Signs 03/27/25 11:04 Height 5 ft 3 in Weight 130 lb BMI 23.0 BP 112/70 Blood Pressure Location Rt brachial Position Sitting Pulse 82 Pulse Source Pulse Oximeter Temp 98.0 F Temp Source Oral Pulse Oximetry (%) 97 Oxygen Delivery Method Room Air Intake Visit Reasons: PE Intake Note: Pt is here today for PE. Allergies No Known Allergies (No Known Allergies*) Allergy (Verified 03/27/25 11:18) Medication List - Last Reconciled 03/27/25 by Nataliia Christine MD cetirizine 10 mg PO DAILY fluoxetine 20 mg PO QAM rosuvastatin (Crestor) 20 mg PO DAILY Tobacco use date assessed: 03/27/25 Fall risk assessment: No Falls in past year Last assessed Fall Risk: 03/27/25 Dental Screening Dental Screen Date: 03/27/25 Did you have a dental visit in the last 12 months?: Yes Did you have a dental problem in the last 6 months where you did not have access to dental care?: No Was dental information given to patient?: Patient has dentist HPI PE HPI Details Pt presents for PE. PFSH Medical History Personal history of nicotine dependence Vitamin D deficiency Hyponatremia Normal Pap smear Mammogram normal Emphysema of lung Hyperlipemia GERD (gastroesophageal reflux disease) Depression Osteopenia (~2017) Surgical History (Updated 03/27/25 @ 12:26 by Nataliia Christine MD) History of bunionectomy (~2009) History of colonoscopy Family History Father No problems noted. Mother No problems noted. Brother Hx of CABG Brother No problems noted. Social History Housing: House Alcohol intake: current Alcohol intake frequency: a few times a week Patient Tobacco Use Status: Never used Tobacco e-Cigarette/Vaping Use: Never Used service: No Current occupational status: retired Current occupation: rt handed Cognitive needs: No Hearing needs: No Vision needs: Yes Questionnaire PHQ-9 Over the last 2 weeks, how often have you been bothered by any of the following problems? 1. Little interest or pleasure in doing things: not at all 2. Feeling down, depressed, or hopeless: not at all 3. Trouble falling or staying asleep, or sleeping too much: not at all 4. Feeling tired or having little energy: not at all 5. Poor appetite or overeating: not at all 6. Feeling bad about yourself - or that you are a failure or have let yourself or your family down: not at all 7. Trouble concentrating on things, such as reading the newspaper or watching television: not at all 8. Moving or speaking so slowly that other people could have noticed. Or the opposite - being so fidgety or restless that you have been moving around a lot more than usual: not at all 9. Thoughts that you would be better off or of hurting yourself in some way: not at all Total score: 0 Depression Screening Interpretation: Negative Depression Screening Done: Yes 03444 - PHQ-9 Billing: Yes Source: Developed by Drs. Guanaco Murry, Precious Burch, Marquis Ball and colleagues, with an educational robin from [employer]. Thrive Questionnaire Date Thrive assessed: 03/27/25 I am a: Patient What is your living situation today?: I have a steady place to live Within the past 12 months, did the food you bought not last and you didn't have the money to get more?: Never true Within the past 12 months, did you worry whether your food would run out before you got money to buy more?: Never true Do you have trouble paying for medicines?: No Do you have trouble getting transportation to medical appointments?: No Do you have trouble paying your heating and electricity bill?: No Do you have trouble taking care of your child, family member or friend?: No Do you have trouble with day-to-day activities such as bathing, preparing meals, shopping, managing finances, etc.?: No Are you currently unemployed and looking for a job?: No Are you interested in more education?: No Please select the resources that you would like help with: None Currently or been in a relationship where the following occur: No concerns reported THRIVE Score: 0 AUDIT C Alcohol Use Questionnaire (AUDIT-C) 1. How often do you have a drink containing alcohol?: 2-3 times a week 2. How many drinks containing alcohol do you have on a typical day when you are drinking?: 3 or 4 3. How often do you have six or more drinks on one occasion?: Less than monthly Total Score: 5 DALIA-7 AMB Questionnaire DALIA-7 Date DALIA - 7 assessed: 03/27/25 Feeling nervous, anxious, or on edge: 0 = Not at all Not being able to stop or control worryin = Not at all Worrying too much about different things: 0 = Not at all Trouble relaxin = Not at all Being so restless that it is hard to sit still: 0 = Not at all Becoming easily annoyed or irritable: 0 = Not at all Feeling afraid as if something awful might happen: 0 = Not at all Total DALIA-7 score (0-4 normal; 5-9 mild; 10-14 moderate; 15-21 severe): 0 Source: Developed by Drs. Guanaco Murry, Precious Burch, Marquis Ball and colleagues, with an educational robin from [employer]. DALIA-7 Assessment Billing DALIA-7 Assessment Tool: DALIA-7 Assessment 14950 Review of Systems Const All systems reviewed & are unremarkable except as noted in HPI and below Eyes Reports no additional complaints ENT Reports no additional complaints Card Reports no additional complaints Resp Reports no additional complaints GI Reports no additional complaints Reports no additional complaints Physical exam (Primary Care) Vital Signs: Last Vital Signs Temp 98.0 F 03/27/25 11:04 Pulse 82 03/27/25 11:04 BP 112/70 03/27/25 11:04 Pulse Ox 97 03/27/25 11:04 Oxygen Delivery Method Room Air 03/27/25 11:04 BMI result Body Mass Index 23.0 Tobacco/Smoking Status: Tobacco use Status Tobacco use date assessed 03/27/25 03/27/25 11:06 Patient Tobacco Use Status Never used Tobacco 03/27/25 11:06 e-Cigarette/Vaping Use Never Used 03/27/25 11:06 PHQ-9: PHQ-9 Score PHQ-9: Total score 0 03/27/25 11:22 Depression Screening Interpretation: Negative Thrive Assessment: Date of Thrive Assessment Date Thrive assessed 03/27/25 03/27/25 11:06 Currently or been in a relationship where the following occur: No concerns reported Const General: no acute distress HENMT Head: Yes normal to inspection Face and sinus: Yes normal facial exam Mouth: Normal oral and palatal mucosa present Eyes General: appearance normal, both eyes and all related structures Neck Neck: Yes no lymphadenopathy and Yes supple Resp Effort & Inspection: normal respiratory effort Auscultation: clear to auscultation bilaterally Cardio Rhythm: regular rhythm Heart sounds: S1 normal heart sound present and S2 normal heart sound present GI Inspection: Yes normal to inspection Palpation (GI): Soft to palpation Percussion: Yes normal to percussion Auscultation: normal bowel sounds Coding Level of Care Code Est Pt Prev Care >65y(05733) Diagnoses Elevated LFTs R79.89 Hyperlipemia E78.5 Emphysema of lung J43.9 Postmenopausal Z78.0 Additional Codes DALIA-7 Assessment Billing - DALIA-7 Assessment Tool: DALIA-7 Assessment 58289 ([id number]) PHQ-9 - 61112 - PHQ-9 Billing: Yes ([id number]) Assessment & Plan Assessment & Plan (1) Elevated LFTs: Code(s): R79.89 - Other specified abnormal findings of blood chemistry Category: Medical Plan: check US and monitor (2) Hyperlipemia: Comment: Crestor 20 mg caused chest pain Code(s): E78.5 - Hyperlipidemia, unspecified Category: Medical Plan: restart Crestor 10 mg a day, patient tolerated well before. Check lipid profile in 2 months (3) Emphysema of lung: Comment: chest CT 2019, mild emphysema mild coronary calcifications, bilateral apical pleural thickening, 4 mm stable noncalcified density right major fissure unchanged April 2018, lung ca screen annual [facility] LAST 02/23 Code(s): J43.9 - Emphysema, unspecified Category: Medical Plan: Follow-up with lung cancer screening program (4) Postmenopausal: Code(s): Z78.0 - Asymptomatic menopausal state Category: Medical Plan: Check DEXA Orders: Orders US abdomen limited Today R79.89 - Other specified abnormal findings of blood chemistry Lipid Panel 2 Months E78.5 - Hyperlipidemia, unspecified, J43.9 - Emphysema, unspecified Comprehensive [place]. Panel Fast 2 Months E78.5 - Hyperlipidemia, unspecified, J43.9 - Emphysema, unspecified XR DEXA axial skeleton Today Z78.0 - Asymptomatic menopausal state Comprehensive [place]. Panel Fast 6 Months E55.9 - Vitamin D deficiency, unspecified, E78.5 - Hyperlipidemia, unspecified, R79.89 - Other specified abnormal findings of blood chemistry Complete Blood Count Auto Diff 6 Months E55.9 - Vitamin D deficiency, unspecified, E78.5 - Hyperlipidemia, unspecified, R79.89 - Other specified abnormal findings of blood chemistry Lipid Panel 6 Months E55.9 - Vitamin D deficiency, unspecified, E78.5 - Hyperlipidemia, unspecified, R79.89 - Other specified abnormal findings of blood chemistry TSH reflex Free T4 6 Months E55.9 - Vitamin D deficiency, unspecified, E78.5 - Hyperlipidemia, unspecified, R79.89 - Other specified abnormal findings of blood chemistry Medications: New rosuvastatin (Crestor) 10 mg PO DAILY 90 tabs 3RF rosuvastatin (Crestor) 10 mg PO DAILY 90 tabs 3RF Refilled fluoxetine 20 mg PO QAM 90 caps 3RF Discontinued rosuvastatin (Crestor) Discontinued Reason: Doctor's Order 20 mg PO DAILY 90 tabs 1RF
--- OUTSIDE RECORDS SUMMARY | 2025-03-27 12:32 | XMS_ITS | Encounter Summary ---
Author Organization [facility] Address [address] [place] [id number] Care Team Providers Care Test Department Helper Name Role Phone Charli Valerio MD Primary Care Provider [phone]- [phone] Pcp, No Primary Care Provider Unavailabl e Encounter Details Date Type Department Care Team (Late st Contact Info) Description 03/09/2016 Scanned Document [address] [place] [address] [phone] Provider, Generic Social History Tobacco Use Types [...] on filedocumented in this encounter Care Teams Test Department Helper Relationship Specialty Start Date End Date Charli Valerio MD PCP - General Family Medicine 01/20/16 03/09/18 Pcp, No PCP - General General Medicine 03/10/18 documented as of this encounter
== END 2025-03-27 12:30 | disposition home or self-care (01) ==
LOC: HO.HMCC 10:59
PROVIDERS: PCP Internal Medicine; Visit Provider Internal Medicine
DX: Z00.00 Encounter for general adult medical examination without abnormal findings (principal); R79.89 Other specified abnormal findings of blood chemistry; E78.5 Hyperlipidemia, unspecified; J43.9 Emphysema, unspecified; Z78.0 Asymptomatic menopausal state

== ENCOUNTER → 2025-03-27 10:58 | Outpatient (BNVA) | payer MEDICARE, SELFPAY | PROVIDERS: PCP Internal Medicine; Visit Provider Internal Medicine | DX: K21.9 Gastro-esophageal reflux disease without esophagitis (principal); E78.5 Hyperlipidemia, unspecified; R79.89 Other specified abnormal findings of blood chemistry; J43.9 Emphysema, unspecified; Z78.0 Asymptomatic menopausal state | CPT/HCPCS: 96127; 99397 ==

== ENCOUNTER 2025-04-17 07:16 | Outpatient (REF) | payer MEDICARE, SELFPAY ==
--- NOTE | ~2025-04-17 | CT_ITS ---
EXAMINATION: CT LUNG SCREENING HISTORY: Z87.891 - Personal history of nicotine dependence TECHNIQUE: Low dose axial images were obtained from the sternal notch to upper abdomen without IV contrast per standard departmental protocol. Sagittal and coronal reformatted images were also obtained and reviewed. One or more of the following techniques was used for dose reduction: Automated exposure control, adjustment of the mA and/or kV according to patient size, use of iterative reconstruction technique. DLP: 36 mGy-cm COMPARISON: Comparison is made with the prior examination dated 02/20/2022. FINDINGS: Lung nodules: Again seen is biapical pleural and parenchymal scarring. No suspicious pulmonary nodules are identified. Emphysema: mild Coronary Calcification: mild Aortic Arch Calcification: mild Potentially Significant Incidentals : none Additional Chest Findings: There is no pleural or pericardial effusion. No mediastinal or axillary lymphadenopathy is identified. Visualized upper abdomen: The visualized portions of the liver, spleen, and adrenals have an unremarkable unenhanced appearance. CT/CT lung screening IMPRESSION: No suspicious pulmonary nodules are identified. LUNG-RADS ASSESSMENT: Lung-RADS 2: Benign MANAGEMENT: Continue annual screening with LDCT in 12 months Category S: N/A Electronically signed by: Guanaco Arora MD 04/17/2025 08:19 AM EDT
--- OUTSIDE RECORDS SUMMARY | 2025-04-17 07:18 | XMS_ITS | Data Portability ---
Author Organization [place] - [facility], [facility] Address [id number] [place] [address] Assessment No assessment recorded. Plan of Treatment Reminders Order Date Submit Date Provider Last Modified By Organization Details Last Modified Time Details Appointments None recorded. Lab urinalysis , dipstick 2018 019 rberke In-Office Order, Internal Use Only DO Not Attach Compendium DO Not Attach Compendium, Do Not Delete/merge, [id number] 10:13:12 fecal occult blood, stool 2018 019 rberke In-Office Order, Internal Use Only DO Not Attach Compendium DO Not Attach Compendium, Do Not Delete/merge, [id number] 09:14:48 fecal occult blood, stool 2017 018 rberke In-Office Order, Internal Use Only DO Not Attach Compendium DO Not Attach Compendium, Do Not Delete/merge, [id number] 8 13:49:38 pap, IG + HPV 2016 017 rberke [facility], [address] [place], [address] 7 13:50:26 urinalysis , dipstick 2016 017 rberke In-Office Order, Internal Use Only DO Not Attach Compendium DO Not Attach Compendium, Do Not Delete/merge, [id number] 7 13:50:26 urinalysis , dipstick 2014 015 [email or web address] In-Office Order, Internal Use Only DO Not Attach Compendium DO Not Attach Compendium, Do Not Delete/merge, [id number] 5 10:17:47 fecal occult blood, stool 2014 015 claire In-Office Order, Internal Use Only DO Not Attach Compendium DO Not Attach Compendium, Do Not Delete/merge, [id number] 5 10:17:47 Referral None recorded. Procedures None recorded. Surgeries None recorded. Imaging MAMMO, screening, digital, bilateral - bilateral screening u/s for dense breasts if needed. 2018 019 [email or web address] [facility], [address], [place], [address], 9 10:05:28 MAMMO, screening, digital, bilateral - bilateral screening u/s for dense breasts if needed. 2017 018 [email or web address] [facility], [address], [place], [address], 8 14:27:31 MAMMO, screening, digital, bilateral - If dense breasts (>50%), please proceed with bilateral breast screening ultrasound . 2016 017 [email or web address] [facility], [address], [place], [address], 7 20:39:10 MAMMO, screening, digital, bilateral - do sonar for dense breast > 50% 2014 015 [email or web address] [facility], [address], [place], [address], 6 11:22:27 Medication Orders fluoxetine 20 mg capsule 2017 018 INTERFACE [id number], [address] [place], [address], 8 13:49:40 fluoxetine 20 mg capsule 2016 017 INTERFACE [id number], [address] [place], [address], 13:09:58 Patient TargetsNo targets recorded. Patient Instructions Encounter Date Encounter Id Patient Instructions Last Modified By Organization Details Last Modified Time 09/30/2015 [id number] self breast exam education baniskoff Not available 10/01/2015 09:45:18 10/06/2016 [id number] elevated blood pressure: care instructions rberke Not available 10/15/2016 13:50:26 self breast exam education rberke Not available 10/06/2016 12:41:29 03/21/2018 [id number] self breast exam education rberke Not available 03/21/2018 13:49:38 tips to help you stay healthy rberke Not available 03/21/2018 13:49:38 learning about mood disorders rberke Not available 03/21/2018 13:49:38 Reason for Referral None Reported. Results Created Date Observation Date Name Description Value Unit Range Abnormal Flag Note LastModifiedBy Organization Detail LastModifiedTime 03/27/2003/27/2019 urina lysis , dipst ick Interpretati on negati ve Not Available In-Office Order Internal Use Only DO Not Attach Compendium DO Not Attach Compendium, Do Not Delete/merge, 03/27/2019 09:34:58 03/27/2003/27/2019 urina lysis , dipst ick Leukocytes Negati ve Not Available In-Office Order Internal Use Only DO Not Attach Compendium DO Not Attach Compendium, Do Not Delete/merge, 03/27/2019 09:34:58 03/27/2003/27/2019 urina lysis , dipst ick Nitrite negati ve Not Available In-Office Order Internal Use Only DO Not Attach Compendium DO Not Attach Compendium, Do Not Delete/merge, 03/27/2019 09:34:58 03/27/2003/27/2019 urina lysis , dipst ick Urobilinogen Normal : 0.2 mg/dl Not Available In-Office Order Internal Use Only DO Not Attach Compendium DO Not Attach Compendium, Do Not Delete/merge, 03/27/2019 09:34:58 03/27/2003/27/2019 urina lysis , dipst ick Protein Negati ve Not Available In-Office Order Internal Use Only DO Not Attach Compendium DO Not Attach Compendium, Do Not Delete/merge, [facility] 03/27/2019 09:34:58 03/27/2003/27/2019 urina lysis , dipst ick Blood Negati ve Not Available In-Office Order Internal Use Only DO Not Attach Compendium DO Not Attach Compendium, Do Not Delete/merge, [facility] 03/27/2019 09:34:58 03/27/2003/27/2019 urina lysis , dipst ick Ketone Negati ve Not Available In-Office Order Internal Use Only DO Not Attach Compendium DO Not Attach Compendium, Do Not Delete/merge, [facility] 03/27/2019 09:34:58 03/27/2003/27/2019 urina lysis , dipst ick Bilirubin Negati ve Not Available In-Office Order Internal Use Only DO Not Attach Compendium DO Not Attach Compendium, Do Not Delete/merge, [facility] 03/27/2019 09:34:58 03/27/2003/27/2019 urina lysis , dipst ick Glucose Negati ve Not Available In-Office Order Internal Use Only DO Not Attach Compendium DO Not Attach Compendium, Do Not Delete/merge, [facility] 03/27/2019 09:34:58 03/27/2003/27/2019 urina lysis , dipst ick Appearance Clear Not Available In-Offi ce Order Internal Use Only DO Not Attach Compendium DO Not Attach Compendium, Do Not Delete/merge, [facility] 03/27/2019 09:34:58 03/27/2003/27/2019 urina lysis , dipst ick Color Yellow Not Available In-Office Order Internal Use Only DO Not Attach Compendium DO Not Attach Compendium, Do Not Delete/merge, [facility] 03/27/2019 09:34:58 03/27/2003/30/2019 fecal occul t blood , stool Occult Blood negati ve Not Available In-Office Order Internal Use Only DO Not Attach Compendium DO Not Attach Compendium, Do Not Delete/merge, [facility] 03/27/2019 09:34:57 03/21/20 18 03/21/2018 fecal occul t blood , stool Occult Blood negati ve Not Available In-Office Order Internal Use Only DO Not Attach Compendium DO Not Attach Compendium, Do Not Delete/merge, [facility] 03/21/2018 13:14:51 10/06/1910/06/2016 urina lysis , dipst ick Leukocytes Negati ve Not Available In-Office Order Internal Use Only DO Not Attach Compendium DO Not Attach Compendium, Do Not Delete/merge, [facility] 10/06/2016 10:48:10 10/06/1910/06/2016 urina lysis , dipst ick Nitrite negati ve Not Available In-Office Order Internal Use Only DO Not Attach Compendium DO Not Attach Compendium, Do Not Delete/merge, [facility] 10/06/2016 10:48:10 10/06/1910/06/2016 urina lysis , dipst ick Urobilinogen Normal : 0.2 mg/dl Not Available In-Office Order Internal Use Only DO Not Attach Compendium DO Not Attach Compendium, Do Not Delete/merge, [facility] 10/06/2016 10:48:10 10/06/1910/06/2016 urina lysis , dipst ick Protein Negati ve Not Available In-Office Order Internal Use Only DO Not Attach Compendium DO Not Attach Compendium, Do Not Delete/merge, [facility] 10/06/2016 10:48:10 10/06/1910/06/2016 urina lysis , dipst ick pH 5.0 Not Available In-Office Order Internal Use Only DO Not Attach Compendium DO Not Attach Compendium, Do Not Delete/merge, [facility] 10/06/2016 10:48:10 10/06/1910/06/2016 urina lysis , dipst ick Blood Negati ve Not Available In-Office Order Internal Use Only DO Not Attach Compendium DO Not Attach Compendium, Do Not Delete/merge, [facility] 10/06/2016 10:48:10 10/06/1910/06/2016 urina lysis , dipst ick Ketone Negati ve Not Available In-Office Order Internal Use Only DO Not Attach Compendium DO Not Attach Compendium, Do Not Delete/merge, [id number] 10/06/2016 10:48:10 10/06/19 17 10/06/2016 urina lysis , dipst ick Bilirubin Negati ve Not Available In-Office Order Internal Use Only DO Not Attach Compendium DO Not Attach Compendium, Do Not Delete/merge, [id number] 10/06/2016 10:48:10 10/06/19 17 10/06/2016 urina lysis , dipst ick Glucose Negati ve Not Available In-Office Order Internal Use Only DO Not Attach Compendium DO Not Attach Compendium, Do Not Delete/merge, [id number] 10/06/2016 10:48:10 10/06/19 17 10/06/2016 urina lysis , dipst ick Appearance Clear Not Available In-Offi ce Order Internal Use Only DO Not Attach Compendium DO Not Attach Compendium, Do Not Delete/merge, [id number] 10/06/2016 10:48:10 10/06/19 17 10/06/2016 urina lysis , dipst ick Color Yellow Not Available In-Office Order Internal Use Only DO Not Attach Compendium DO Not Attach Compendium, Do Not Delete/merge, [id number] 10/06/2016 10:48:10 09/30/20 15 09/30/2015 fecal occul t blood , stool Occult Blood negati ve Not Available In-Office Order Internal Use Only DO Not Attach Compendium DO Not Attach Compendium, Do Not Delete/merge, [id number] 09/30/2015 09:46:00 09/30/20 15 09/30/2015 urina lysis , dipst ick Interpretati on negati ve Not Available In-Office Order Internal Use Only DO Not Attach Compendium DO Not Attach Compendium, Do Not Delete/merge, [id number] 09/30/2015 09:32:59 09/30/20 15 09/30/2015 urina lysis , dipst ick Leukocytes Trace Not Available In-Offi ce Order Internal Use Only DO Not Attach Compendium DO Not Attach Compendium, Do Not Delete/merge, [id number] 09/30/2015 09:32:59 09/30/20 15 09/30/2015 urina lysis , dipst ick Nitrite negati ve Not Available In-Office Order Internal Use Only DO Not Attach Compendium DO Not Attach Compendium, Do Not Delete/merge, [id number] 09/30/2015 09:32:59 09/30/20 15 09/30/2015 urina lysis , dipst ick Urobilinogen Normal : 0.2 mg/dl Not Available In-Office Order Internal Use Only DO Not Attach Compendium DO Not Attach Compendium, Do Not Delete/merge, [id number] 09/30/2015 09:32:59 09/30/20 15 09/30/2015 urina lysis , dipst ick Protein Negati ve Not Available In-Office Order Internal Use Only DO Not Attach Compendium DO Not Attach Compendium, Do Not Delete/merge, [id number] 09/30/2015 09:32:59 09/30/20 15 09/30/2015 urina lysis , dipst ick pH 5.0 Not Available In-Office Order Internal Use Only DO Not Attach Compendium DO Not Attach Compendium, Do Not Delete/merge, 09/30/2015 09:32:59 09/30/20 15 09/30/2015 urina lysis , dipst ick Blood Negati ve Not Available In-Office Order Internal Use Only DO Not Attach Compendium DO Not Attach Compendium, Do Not Delete/merge, [id number] 09/30/2015 09:32:59 09/30/20 15 09/30/2015 urina lysis , dipst ick Ketone Negati ve Not Available In-Office Order Internal Use Only DO Not Attach Compendium DO Not Attach Compendium, Do Not Delete/merge, 09/30/2015 09:32:59 09/30/20 15 09/30/2015 urina lysis , dipst ick Bilirubin Negati ve Not Available In-Office Order Internal Use Only DO Not Attach Compendium DO Not Attach Compendium, Do Not Delete/merge, 09/30/2015 09:32:59 09/30/20 15 09/30/2015 urina lysis , dipst ick Glucose Negati ve Not Available In-Office Order Internal Use Only DO Not Attach Compendium DO Not Attach Compendium, Do Not Delete/merge, [id number] 09/30/2015 09:32:59 09/30/20 15 09/30/2015 urina lysis , dipst ick Appearance Clear Not Available In-Offi ce Order Internal Use Only DO Not Attach Compendium DO Not Attach Compendium, Do Not Delete/merge, [id number] 09/30/2015 09:32:59 09/30/20 15 09/30/2015 urina lysis , dipst ick Color Yellow Not Available In-Office Order Internal Use Only DO Not Attach Compendium DO Not Attach Compendium, Do Not Delete/merge, [id number] 09/30/2015 09:32:59 10/06/19 17 10/07/2016 pap, IG + HPV report GYNEC OLOGI LEANA CYTOL OGY REPOR T A. THINP REP PAP (IMAG ER) WITH HPV SCREE N AND REFLE X TO HPV 16,18 /45: SPECI MEN ADEQU ACY: SATIS FACTO RY FOR EVALU ATION . INTER PRETA TION: NEGAT BRENT FOR INTRA EPITH ELIAL LESIO N OR MALIG DENISSE . ATROP HY. PARTI ALLY OBSCU RING INFLA MMATI ON. Elect savanna joyce Isaura d Out By: DENISSE Acevedo CT( CP) QIANA MCMILLAN, [place]( CP) CLINI LEANA INFOR MATIO N: LMP: NG V72.3 1 Z01.4 11 Z01.4 19 Biops y Date: NG Speci men sourc e: Cervi leana Abnor mal Pap Date: NG Autom ated presc reeni ng of all liqui d based speci mens is perfo rmed by the ThinP rep Imagi ng Systgertrude mashlie s other [place] d. The Pap test is a scree farhan test with an inher ent false negat brent rate. [facility]i ng [facility] , [address] [place] [address] CLIA [id number] CL-PO [id number]. Not Available [facility] [address] [place], [address] 10/07/2016 15:16:07 10/06/19 17 10/07/2016 pap, IG + HPV HPV result NEGATI VE negati ve APTIM A HPV assay detec ts 14 high risk HPV types (HPV 16,18 ,31,3 3,35, 39,45 , 51,52 ,56,5 8,59, 66,68 ). The assay is FDA appro abelardo for testi ng ThinP rep liqui d Pap vials but not FDA appro abelardo for detec ting HPV in SureP ath liqui d Pap speci mens. In-ho use valid ation has shown the assay can detec t all HPV types from this general [facility] e. Not Available [facility] [address] [place], [address] 10/07/2016 15:16:07 Result Notes None recorded. Problems No Known Problems Procedures Surgical History Date Name Laterality Status Provider Name and Address Organization Details Recorded Time 03/27/20 19 Medicare Exam completed ASHLYN MIRANDA MD [address] [place] [address], [phone], [facility] 03/27/2019 10:10:37 01/03/20 19 Date of Last Colonoscopy completed Carmelita Erwin [facility] 03/27/2019 09:32:36 01/03/20 19 Colonoscopy completed Carmelita Erwin [facility] 03/27/2019 09:30:25 03/21/20 18 Medicare Exam completed DO NOT USE DO NOT USE [facility] 03/21/2018 13:14:44 10/06/19 17 Date of Last Pap Smear completed DO NOT USE DO NOT USE [facility] 03/21/2018 12:54:31 09/30/20 15 A7P-EQNUM completed ASHLYN MIRANDA MD [address] [place] [address], [address] [place] [address], [phone], [facility] 09/30/2015 10:11:38 09/30/20 15 C1S-TQA completed ASHLYN MIRANDA MD [address], [address], [facility] 09/30/2015 10:11:38 Cataract Surgery completed Not Available [facility] 03/21/2015 15:41:44 Tubal Ligation completed Not Available [facility] 03/21/2015 15:41:45 Imaging Results None recorded. Procedure Notes None recorded. Medical Equipment None Reported. Allergies Allergen ID Allergen Name Allergen Category Reaction Reaction Severity Criticality Documentation Date Start Date Code Code System Note Provider Name and Address Organization Details Recorded Time 438858 No known allergy (situatio n) Not available Not available Not available Not available 03/12/20152012 05006 6003 SNOMED DO NOT USE DO NOT USE [facility] 8 12:55:55 No known drug allergies Medications Name Sig Start Date Stop Date Status Note LastModified by Organization Details LastModified Time amoxicillin 500 mg capsule active Not Available Not Available Not Available cetirizine 10 mg tablet TAKE 1 TABLET BY MOUTH EVERY DAY active Not Available Not Available No t Available metronidazol e 500 mg tablet 03/27 completed Not Available Not Available Not Available acetaminophe n 300 mg-codeine 30 mg tablet active Not Available Not Available Not Available amoxicillin 875 mg tablet 10/06 completed Not Available Not Available Not Available fluoromethol one 0.1 % eye drops,suspen erinn active Not Available Not Available Not Available levofloxacin 500 mg tablet active Not Available Not Available Not Available fluoxetine 20 mg capsule TAKE 1 CAPSULE BY MOUTH EVERY DAY IN THE MORNING active Not Available Not Available No t Available amoxicillin 875 mg-potassium clavulanate 125 mg tablet 03/27 completed Not Available Not Available Not Available rosuvastatin 5 mg tablet TAKE 1 TABLET BY MOUTH EVERY DAY active Not Available Not Available No t Available Suprep Bowel Prep Kit 17.5 gram-3.13 gram-1.6 gram oral solution active Not Available Not Available Not Available Chantix Continuing Month Box 1 mg tablet active Not Available Not Available No t Available Chantix Starting Month Box 0.5 mg (11)-1 mg (42) tablets in dose pack active Not Available Not Available Not Available Vitals Date Recorded Body height Body weight Body mass index (BMI) Systolic And Diastolic Provider Name and Address Organization Details Last Updated DateTime 10/06/2016 154.94 cm 26903.45 g 23.4 kg/m2 148/90 mm[Hg] Madelyn Aponte [facility] 10/06/2016 11:04:57 Date Recorded Body height Body mass index (BMI) Body weight Systolic And Diastolic Provider Name and Address Organization Details Last Updated DateTime 03/21/2018 154.94 cm 23.8 kg/m2 76504.64 g 128/80 mm[Hg] DO NOT USE DO NOT USE [facility] 03/21/2018 13:13:55 Date Recorded Body height Body mass index (BMI) Body weight Systolic And Diastolic Provider Name and Address Organization Details Last Updated DateTime 03/27/2019 154.94 cm 23.4 kg/m2 48054.45 g 124/70 mm[Hg] Carmelita Erwin [facility] 03/27/2019 09:43:15 Date Recorded Body height Body mass index (BMI) Body weight Systolic And Diastolic Provider Name and Address Organization Details Last Updated DateTime 09/30/2015 154.94 cm 20.6 kg/m2 70455.568 33 g 138/60 mm[Hg] Claudia Smith [facility] 09/30/2015 09:32:59 Social History Question Answer Notes LastModified by Organizat ion Details LastModified Time Tobacco Smoking Status Former Smoker quit 2015 Madelyn royal [facility] 10/06/2016 10:57:20 Is Blood Transfusion Acceptable In An Emergency? Yes Information not available 09/30/2015 Does Your Partner Physically Hurt You Or Threaten To Hurt You? No Information not available 03/27/2019 Has Your Partner Forced You To Have Sex Or Perform Sex Acts When You Did Not Want To? No Information not available 03/27/2019 Does Your Partner Insult, Scream At Or Talk Down To You? No Information not available 03/27/2019 Does Your Partner Control You Or Any Part Of Your Life? No Information not available 03/27/2019 Are You Afraid Of Your Partner? No Information not available 03/27/2019 Drug Use? No Information no t available 09/30/2015 Do You Feel Safe At Home? Yes Information not available 09/30/2015 What Was The Date Of Your Most Recent Tobacco Screening? 03/27/2019 Information not available 04/26/2019 How Much Tobacco Do You Smoke? No [email or web address] Information not available 10/06/2016 General Stress Level Low Information not available 09/30/2015 Sex: Unknown Functional Status Question Answer Note LastModified by Organizat ion Details LastModified Time What is your level of alcohol consumption? Occasional Information not available 09/30/2015 What is your exercise level? Moderate Information not available 03/27/2019 Mental Status None recorded. Family History Relationship Description Onset Age of this Age Resolved Age Notes LastModified by Organization Details LastModified Time Mother Heart disease Not available 2014 09:40:43 Father Heart disease Not available 2014 09:40:43 Brother Diabetes mellitus Not available 2014 09:40:43 Medical History Condition Response Other N *No Diseases or Conditions N Blood clots N Breast Cancer N Benign breast disease N Colon cancer N Lung Disease N Depression N Defects or Inherited Disease N Anesthesia Complications N Headaches/Migraines N Have you ever been on isolation N Anxiety Disorder N Arthritis N HSV N Infertility N Interstitial Cystitis N Acid Reflux (GERD) N Cancer N Stroke N Endometriosis N Fibromyalgia N Spina Bifida N HIV N Heart Problems N Sexual Dysfunction N Autoimmune disorder N Thyroid Problems N Kidney or Bladder Problems N GI Problems N Eating Disorder N Anemia N Multiple Sclerosis N Psychiatric Illness N Diabetes N Ovarian Cancer N Blood Transfusions N Bladder disease N History of MRSA N Abnormal Uterine Bleeding N Hyperlipidemia N BrCa positive N Abuse/Domestic Violence N Diverticulitis N Asthma N Hepatitis N Hypertension N Osteoporosis N Thrombophilias N Gynecological History Statement/Question Response Current Control Method Menopause Date of Last Mammogram Date of Last Colonoscopy 01/02/2019 Date of last DEXA IPV Screen Done 03/27/2019 Date of Last Pap Smear 10/06/2016 Obstetrics History GPAL:G 2 P 2 0 0 2 Type Value Full Term 2 Living 2 Total 2 Immunizations Vaccine Type Date Status Note Provider Nam e and Address Organization Details Recorded Time Tdap 2 completed Not Available [facility] 11/04/2019 02:13:19 Influenza, split virus, quadrivalent, preservative 5 completed Not Available [facility] 10/21/2019 02:18:44 Past Encounters Encounter ID Performer Location Encounter Start Date Encounter Closed Date Diagnosis/Indication Diagnosis SNOMED-CT Code Diagnosis ICD10 Code Diagnosis Note [id number] [facility] [address] [place] [address] 09/02/2012 00:00:00 [id number] [facility] [address] [place] [address] 09/30/2012 00:00:00 [id number] [facility] [address] [place] [address] 09/15/2013 00:00:00 [id number] [facility] [address] [place] [address] 09/20/2014 00:00:00 [id number] ASHLYN MIRANDA MD [address] [place] [address] 09/30/2015 09:17:15 09/30/2015 10:22:12 Gynecologic examination 23671116 Z01.419 Z01.411 Screening mammography 24 040097 Z12.31 Advised to obtain a yearly screening mammogram and to perform monthly self breast exam. Screening for malignant neoplasm of rectum 009304152 Z12.12 FIT test performed and was negative. Influenza vaccine needed [id number] 106 Z23 Patient was advised to have a vaccinatio n. risks and benefits of the specific vaccine were reviewed. Patient denies history of significan t reaction to previous vaccinatio ns. denies egg allergy or history of Guillain Scenic syndrome. Patient informed that most people will get a little sore in the area of injection for a few days. She was instructed to call for any concerning side effects from the vaccine such as high fever or hives or significan t induration or erythema. Vaccine given in L arm without difficulty . [id number] ASHLYN MIRANDA MD [address] [facility] [address] 10/06/2016 10:08:55 10/06/2016 12:12:09 Gynecologic examination 73587516 Z01.419 Z01.411 Screening mammography 24 938781 Z12.31 Advised to obtain a yearly screening mammogram and to perform monthly self breast exam. Screening for malignant neoplasm of rectum 297431433 Z12.12 FIT test performed and was negative. Increased blood pressure 11415811 R03.0 pt is to follow up with her pcp regarding her bp [id number] ASHLYN MIRANDA MD [facility] [place] [address] 04/12/2017 09:10:17 04/12/2017 10:08:45 Depressive disorder 43317718 F32.9 doing well on fluoxetine and desires to continue. No suicidal ideation. Will continue for 6 months until next annual. [id number] ASHLYN MIRANDA MD [facility] [place] [address] 03/21/2018 12:53:48 03/21/2018 13:47:57 Gynecologic examination 95820915 Z01.419 patient is here today for a Medicare breast and pelvic exam and f/u depression . having an annual with [facility] 03/23/2018 unsure of the drs name has never been there before Screening for malignant neoplasm of cervix 222809144 Z12.4 no pap done today Menopause present 532707 006 N95.1 Review when to perform bone density evaluation . Screening mammography 24 103446 Z12.31 Advised to obtain a yearly screening mammogram and to perform monthly self breast exam. Screening for malignant neoplasm of rectum 258956939 Z12.12 FIT test performed and was negative. Depressive disorder 3548 9007 F32.9 doing well on fluoxetine and desires to continue. No suicidal ideation. Will continue for 12 months until next annual. [id number] ASHLYN MIRANDA MD [address],[facility] [address] [place] [address] 03/27/2019 09:16:52 03/27/2019 10:04:07 Gynecologic examination 75091793 Z01.419 patient is here today for a Medicare breast and pelvic exam and f/u depression . having an annual with [facility] 03/23/2018 unsure of the drs name has never been there before Screening for malignant neoplasm of cervix 592955706 Z12.4 no pap done today; due next yr Menopause present [id number] 006 N95.1 Review when to perform bone density evaluation . patient states last done in [place]. Advised to forward report. Screening mammography 24 [id number] Z12.31 Advised to obtain a yearly screening mammogram and to perform monthly self breast exam. Screening for malignant neoplasm of rectum [id number] Z12.12 FIT test performed and was negative. Depression screening 171 [id number] Z13.31 Depression screening done. Health Concerns Section Related Observation LastModified by Organization Detai ls LastModified Time None Recorded Concern Status LastModified by Organization Details LastModified Time None Recorded Advance Directives Directive None Recorded Payers Insurance Date Sequence Insurance Name Policy Number Policy Watkins Covered Member ID Watkins Member ID Guarantor Name 08/11/2019 2 [place] [id number] Crystal Rodriguez [id number] Crystal Rodriguez 04/05/2020 1 MEDICARE B-[place]: NGS Crystal Rodriguez [id number] Crystal Rodriguez 04/05/2020 2 [place] [id number] Crystal Rodriguez [id number] Crystal Rodriguez 10/06/2016 1 [facility] [id number] Alfonso Delorisjagdeep [id number] Crystal Rodriguez 03/07/2018 1 [employer] [id number] Crystal Rodriguez [id number] Crystal Rodriguez Notes Date Note Type Note Provider Name and Address Organization Details Recorded Time 09/30/2015 text/html [facility] Annual GYNRe ported bypatient.History:no gynecologic complaints Menstrual cycle:postmenopausal Urinary symptoms:No hematuria; No incontinence Vulva:No genital lesion Vagina:Normal vaginal discharge Breast:No breast pain; No breast lump; No nipple discharge Sexual complaints:No sexual complaints; No pain during intercourse; Normal libido Menopausal Symptoms:No menopausal symptoms; Normal vaginal lubrication Psychological symptoms:No depression; No anxiety; No PMDD Preventive measures:Encourage self breast examination; Encourage regular exercise; Encourage regular mammograms starting age 40; Followed with Q3 year pap smear and high risk HPV typing ASHLYN MIRANDA MD [address] [place] [address], [address] [place], [address], [place] - [facility] 09/30/2015 10:18:57 10/06/2016 text/html [facility] Annual GYNRe ported bypatient.History:no gynecologic complaints Menstrual cycle:postmenopausal Urinary symptoms:No hematuria; No incontinence Vulva:No genital lesion Vagina:Normal vaginal discharge Breast:No breast pain; No breast lump; No nipple discharge Sexual complaints:No sexual complaints; No pain during intercourse; Normal libido Menopausal symptoms:No menopausal symptoms; Normal vaginal lubrication Psychological symptoms:No depression; No anxiety; No PMDD Preventive measures:Encourage self breast examination; Encourage regular exercise; Encourage regular mammograms starting age 40; Followed with Q3 year pap smear and high risk HPV typing ASHLYN MIRANDA MD [address], [address], [facility] 10/15/2016 13:52:23 04/12/2017 text/html Generic HPI TemplateReported bypatient.Location:[facility] anxious and depressed. Quality:depression Severity:mild on medication. Duration:20 years Onset/Timin plus years ago. Context:pt taking fluoxetine 20 mg Aggravating factors:family stress Alleviating factors:fluoxetineNote s: pt is here today for a medication follow up, she is currently taking fluoxetine 20 mg for pmdd ASHLYN MIRANDA MD [address] [place] [address], [phone], [facility] 04/12/2017 13:10:37 03/21/2018 text/html Generic HPI TemplateReported bypatient.Location:[facility] anxious and depressed when patient tried to wean fluoxetine to QOD. Quality:depression Severity:almost resolved on medication. Duration:20 years Onset/Timin plus years ago. Context:pt taking fluoxetine 20 mg daily now. Aggravating factors:family stress Alleviating factors:fluoxetineNote s: patient is here today for a breast and pelvic is scheduled for an annual with [facility] pt is here today for a medication follow up, she is currently taking fluoxetine 20 mg for pmdd ASHLYN MIRANDA MD [address] [place] [address], [phone], [facility] 03/21/2018 13:49:43 03/27/2019 text/html [facility] Annual GYNRe ported bypatient.History:no gynecologic complaints Menstrual cycle:postmenopausal Urinary symptoms:No hematuria; No incontinence Vulva:No genital lesion Vagina:Normal vaginal discharge Breast:No breast pain; No breast lump; No nipple discharge Sexual activity:sexually active no; No sexual complaints; No pain during intercourse; Normal libido Menopausal symptoms:No menopausal symptoms; Normal vaginal lubrication Psychological symptoms:No depression; No anxiety; No PMDD Preventive measures:Encourage self breast examination; Encourage regular exercise; Encourage regular mammograms starting age 40; Followed with Q3 year pap smear and high risk HPV typing ASHLYN MIRANDA MD [address] [place] [address], [address] Floor, [place], [address], [place] [facility] 03/30/2019 09:14:58 OBGyn Episode No OBEpisode recorded.
--- OUTSIDE RECORDS SUMMARY | 2025-04-17 07:18 | XMS_ITS | Encounter Summary ---
Author Organization [facility] Address [address] [place] [address] Care Team Providers Care Inset Cutter Name Role Phone Charli Valerio MD Primary Care Provider [phone] Pcp, No Primary Care Provider Unavailabl e Encounter Details Date Type Department Care Team (Late st Contact Info) Description 03/09/2016 Scanned Document [address] [place] [address] [phone] Provider, Generic Social History Tobacco Use Types [...] on filedocumented in this encounter Care Teams Inset Cutter Relationship Specialty Start Date End Date Charli Valerio MD PCP - General Family Medicine 01/20/16 03/09/18 Pcp, No PCP - General General Medicine 03/10/18 documented as of this encounter
--- OUTSIDE RECORDS SUMMARY | 2025-04-17 07:18 | XMS_ITS ---
Author Name [facility] Organization Unknown Problems Problem Status Onset Date Problem Type Date of Resoluti on Source Other and unspecified hyperlipidemia active 2012-04-05 [facility] Cataract active 2012-04-05 [facility] Pain in left hip active 2016-01-20 [facility]Act [facility] Depression active 2017-04-02 [facility] Fatty liver disease, nonalcoholic active 2017-04-02 ProblemAct [facility] Elevated liver enzymes active 2017-02-12 ProblemAct [facility]
--- OUTSIDE RECORDS SUMMARY | 2025-04-17 07:18 | XMS_ITS | Clinical Summary ---
Author Organization [facility] Address [address] [place] [address] Care Team Providers Care People Manager Name Role Phone Nataliia Christine MD Primary Care Provider [phone] Allergies No known active allergies Medications Medication Sig Dispensed Refills Start Date End Date Status FLUoxetine (PROZAC) 20 MG capsule 0 11/30/2015 Active vitamin E 100 UNIT capsule Take 100 Units by mouth daily. 0 Active Multiple Vitamins-Minerals (MULTIVITAMIN ADULT PO) Take 1 tablet by mouth daily. 0 Active Acetaminophen-Cod eine (TYLENOL/CODEINE #3) 300-30 MG per tablet Take 1-2 tablets by mouth every 4 (four) hours as needed for pain. 29 tablet 0 04/12/2018 Active fluorometholone (FML) 0.1 % ophthalmic ointment fluorometholone 0.1 % eye drops,suspension 0 Active omeprazole (PRILOSEC) 20 MG capsule Take 20 mg by mouth daily. 0 Active Active Problems Problem Noted Date Diagnosed Date Dupuytren's contracture left small finger 2017 Trigger thumb, left thumb 03/17/2018 Family History Medical History Relation Name Comments Arthritis Brother Diabetes Brother Arthritis Father Heart disease Mother Relation Name Status Comments Brother Father Mother Social History Tobacco Use Types Packs/Day Years Used Date Smoking Tobacco: Former Cigarettes Q uit: 03/2016 Smokeless Tobacco: Never Tobacco Cessation:Counseling Given: No Alcohol Use Standard Drinks/Week Comments Yes 7 (1 standard drink = 0.6 oz pur e alcohol) Sex and Gender Information Value Date Recorded Sex Assigned at Female 04/25/2020 8:45 AM EDT Gender Identity Not on file Sexual Orientation Not on file Last Filed Vital Signs Vital Sign Reading Time Taken Comments Blood Pressure 160/74 04/12/2018 10:05 AM EDT Pulse 79 04/12/2018 10:05 AM EDT Temperature 36.1 C (96.9 F) 04/12/2018 9:42 AM EDT Respiratory Rate 16 04/12/2018 10:05 AM EDT Oxygen Saturation 94% 04/12/2018 10:09 AM EDT Inhaled Oxygen Concentration - - Weight 54.4 kg (120 lb) 04/12/2018 7:21 AM EDT Height 152.4 cm (5') 04/12/2018 7:21 AM EDT Body Mass Index 23.44 04/12/2018 7:21 AM EDT Plan of Treatment Health Maintenance Due Date Last Done Comments Hepatitis C Screening 1955 COVID-19 Vaccine (#1) 1953 Depression Screening 1965 Preventative Health Evaluation 1971 Colon Cancer Screening (Colonoscopy) 1998 Breast Cancer Screening (Mammogram) 2003 Shingrix-Zoster Vaccine (1 of 2) 2003 Fall Risk Assessment 2018 Osteoporosis Screening (DEXA Scan) 2018 Pneumococcal Vaccine (1 of 1 - PCV) 2018 DTap / Tdap / Td (2 - Td or Tdap) 09/28/2022 012 Influenza Vaccine (#1) 2025 09/30/2015 RSV Adult > 60+ Yrs or Pregn ant (1 - 1-dose 75+ series) 2028 Hepatitis B Vaccines Aged Out No long er eligible based on patient's age to complete this topic RSV Ped < 20 months Aged Out No longe r eligible based on patient's age to complete this topic Care Teams People Manager Relationship Specialty Start Date End Date Nataliia Christine MD [address] [place] [address] PCP - General Half Sole Fitter 03/29/18
--- OUTSIDE RECORDS SUMMARY | 2025-04-17 07:18 | XMS_ITS | Clinical Summary ---
Author Organization [facility] it Address [address] [place] [address] Care Team Providers Care Real Estate Agent/Broker Name Role Phone Nataliia Christine MD Primary Care Provider [phone] Surgical History Surgery Date Site/Laterality Comments FOOT SURGERY Bilateral PROCEDURE:FOOT SURGERY;COMMENT:bunionectomies COLONOSCOPY PROCEDURE:COLONOSCOPY HAND SURGERY 04/12/2018 Left PROCEDURE:PALMAR FASCIECTOMY;COMMENT:Procedure: FASCIECTOMY PALMAR; Surgeon: Raul Whalen MD; Location: [facility]; Service: Orthopedics; Laterality: Left; TRIGGER FINGER RELEASE 04/12/2018 Left PROCEDURE:TRIGGER FINGER RELEASE;COMMENT:Procedure: RELEASE TENDON SHEATH HAND; Surgeon: Raul Whalen MD; Location: [facility]; Service: Orthopedics; Laterality: Left; Medical History Medical History Date Comments Anxiety DX:Anxiety Acid reflux disease DX:Acid refl ux disease Family History Medical History Relation Name Comments Arthritis Brother Diabetes Brother Arthritis Father Heart disease Mother Relation Name Status Comments Brother Father Mother Social History Tobacco Use Types Packs/Day Years Used Date Smoking Tobacco: Former Cigarettes Q uit: 03/04/2016 Smokeless Tobacco: Never Alcohol Use Standard Drinks/Week Comments Yes 7 (1 standard drink = 0.6 oz pur e alcohol) Comments Unknown Sex and Gender Information Value Date Recorded Sex Assigned at Not on file Legal Sex Female 7:39 AM EST Gender Identity Not on file Sexual Orientation Not on file Obstetrics History Plan of Treatment Health Maintenance Due Date Last Done Comments Breast Cancer Screening 1955 DTaP,Tdap,and Td Vaccines (1 - Tdap) 1972 Pneumococcal Vaccine: 50+ Ye ars (1 of 1 - PCV) 2003 Zoster Vaccines (1 of 2) 2003 COVID-19 Vaccine (1 - 2024-2 5 season) 2024 Influenza Vaccine (#1) 2025 RSV Immunization Adult Patie nts (1 - 1-dose 75+ series) 2028 HIB Vaccines Aged Out No longer eligi ble based on patient's age to complete this topic HPV Vaccines Aged Out No longer eligi ble based on patient's age to complete this topic Hepatitis A Vaccines Aged Out No long er eligible based on patient's age to complete this topic Hepatitis B Vaccines Aged Out No long er eligible based on patient's age to complete this topic IPV Vaccines Aged Out No longer eligi ble based on patient's age to complete this topic MMR Vaccines Aged Out No longer eligi ble based on patient's age to complete this topic Meningococcal ACWY Vaccine Aged Out N o longer eligible based on patient's age to complete this topic Meningococcal B Vaccine Aged Out No l onger eligible based on patient's age to complete this topic RSV Immunization Patients Un parker 20 months Aged Out No longer eligible b ased on patient's age to complete this topic Varicella Vaccines Aged Out No longer eligible based on patient's age to complete this topic Care Teams Real Estate Agent/Broker Relationship Specialty Start Date End Date Nataliia Christine MD PCP - General Lithographing Machine Operator 03/29/18
== END 2025-04-17 07:17 | disposition home or self-care (01) ==
LOC: HO.CT 07:16
PROVIDERS: PCP Internal Medicine; Visit Provider Physician Assistant Medical
DX: Z12.2 Encounter for screening for malignant neoplasm of respiratory organs (principal); Z87.891 Personal history of nicotine dependence
CPT/HCPCS: 71271

== ENCOUNTER → 2025-04-17 07:18 | Outpatient (BNV) | payer MEDICARE, SELFPAY | PROVIDERS: PCP Internal Medicine; Visit Provider Radiology Diagnostic Radiology | DX: Z87.891 Personal history of nicotine dependence (principal) | CPT/HCPCS: 71271 ==

== ENCOUNTER 2025-06-07 10:15 | Outpatient (REF) | payer MEDICARE, SELFPAY ==
--- NOTE | ~2025-06-07 | MM_ITS ---
EXAMINATION: MM SCREENING DIGITAL BREAST TOMOSYNTHESIS, BILATERAL CLINICAL INFORMATION: Screening. Asymptomatic. COMPARISON: Mammography: Comparison is made with available priors TECHNIQUE: Digital breast mammography with tomosynthesis is performed in both the craniocaudal and mediolateral oblique views along with computer-aided detection (CAD). FINDINGS: The breasts are heterogeneously dense, which may obscure small masses (ACR BI-RADS breast composition Category c). There are no significant masses, abnormal calcifications, or other abnormalities. MM/MM tomosynthesis screening BI IMPRESSION: No mammographic evidence of malignancy. ASSESSMENT: BI-RADS BI-RADS 1 - Negative RECOMMENDATION: Routine annual mammography screening. 1 year F/U This examination should not preclude the clinical evaluation of a suspicious palpable abnormality. This patient's information was entered into a reminder system with a target due date for their next mammogram. Electronically signed by: Tarah Power DO 06/11/2025 10:52 AM EDT
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
--- OUTSIDE RECORDS SUMMARY | 2025-06-07 11:33 | XMS_ITS | Encounter Summary ---
Author Organization [facility] Address [address] [place] [address] Care Team Providers Care Senior Technical Analyst Name Role Phone Charli Valerio MD Primary Care Provider [phone] Pcp, No Primary Care Provider Unavailabl e Encounter Details Date Type Department Care Team (Late st Contact Info) Description 03/09/2016 Scanned Document [address] [place] [address] [phone] Provider, Generic Social History Tobacco Use Types [...] on filedocumented in this encounter Care Teams Senior Technical Analyst Relationship Specialty Start Date End Date Charli Valerio MD PCP - General Family Medicine 01/20/16 03/09/18 Pcp, No PCP - General General Medicine 03/10/18 documented as of this encounter
--- OUTSIDE RECORDS SUMMARY | 2025-06-07 11:33 | XMS_ITS | Clinical Summary ---
Author Organization [facility] Address [address] [place] [address] Care Team Providers Care News Production Supervisor Name Role Phone Nataliia Christine MD Primary Care Provider [phone] Allergies No known active allergies Medications Medication [...] age to complete this topic Care Teams News Production Supervisor Relationship Specialty Start Date End Date Nataliia Christine MD [address] [place] [address] PCP - General Quality Assurance Calibrator 03/29/18
--- OUTSIDE RECORDS SUMMARY | 2025-06-07 11:33 | XMS_ITS | Clinical Summary ---
Author Organization [facility] it Address [address] [place] [address] Care Team Providers Care Machine Pan Greaser Name Role Phone Nataliia Christine MD Primary Care Provider [phone] Surgical History Surgery Date Site/Laterality Comments FOOT SURGERY Bilateral PROCEDURE:FOOT SURGERY;COMMENT:bunionectomies COLONOSCOPY PROCEDURE:COLONOSCOPY HAND SURGERY 04/12/2018 Left PROCEDURE:PALMAR FASCIECTOMY;COMMENT:Procedure: FASCIECTOMY PALMAR; Surgeon: Raul Whalen MD; Location: [facility]; Service: Orthopedics; Laterality: Left; TRIGGER FINGER RELEASE 04/12/2018 Left PROCEDURE:TRIGGER FINGER RELEASE;COMMENT:Procedure: RELEASE TENDON SHEATH HAND; Surgeon: Raul Whalen MD; Location: [facility]; Service: Orthopedics; Laterality: Left; Medical History [...] 2003 Zoster Vaccines (1 of 2) 2003 Depression Screening 10/04/2024 COVID-19 Vaccine ( - 2023-2 5 season) 2025 Influenza Vaccine (#1) 2025 RSV Immunization Adult [...] age to complete this topic Care Teams Machine Pan Greaser Relationship Specialty Start Date End Date Nataliia Christine MD PCP - General Technician Automated Equipment 03/29/18
== END 2025-06-07 10:16 | disposition home or self-care (01) ==
LOC: HO.MAMMO 10:15
PROVIDERS: PCP Internal Medicine; Visit Provider Internal Medicine
DX: Z12.31 Encounter for screening mammogram for malignant neoplasm of breast (principal)
CPT/HCPCS: 77063; 77067

== ENCOUNTER → 2025-06-07 10:30 | Outpatient (BNV) | payer MEDICARE, SELFPAY | PROVIDERS: PCP Internal Medicine; Visit Provider Internal Medicine | DX: Z12.31 Encounter for screening mammogram for malignant neoplasm of breast (principal) | CPT/HCPCS: 77063; 77067 ==

== ENCOUNTER 2025-06-14 07:22 | Outpatient (REF) | payer MEDICARE, SELFPAY ==
--- OUTSIDE RECORDS SUMMARY | 2025-06-14 07:25 | XMS_ITS | Clinical Summary ---
Author Organization [facility] Address [address] [place] [address] Care Team Providers Care Science Center Display Builder Name Role Phone Pcp, No Primary Care [...] patient's age to complete this topic Insurance [facility] Care Teams Science Center Display Builder Relationship Specialty Start Date End Date Pcp, No PCP - General General Medicine 03/10/18
--- OUTSIDE RECORDS SUMMARY | 2025-06-14 07:25 | XMS_ITS | Encounter Summary ---
Author Organization [facility] Address [address] [place] [address] Care Team Providers Care Part Time Flexible Clerk Name Role Phone Charli Valerio MD Primary Care Provider [phone] Pcp, No Primary Care Provider Unavailabl e Encounter Details Date Type Department Care Team (Late st Contact Info) Description 03/09/2016 Scanned Document [address] [place] [address] [phone] Provider, Generic Social History Tobacco Use Types [...] on filedocumented in this encounter Care Teams Part Time Flexible Clerk Relationship Specialty Start Date End Date Charli Valerio MD PCP - General Family Medicine 01/20/16 03/09/18 Pcp, No PCP - General General Medicine 03/10/18 documented as of this encounter
--- OUTSIDE RECORDS SUMMARY | 2025-06-14 07:25 | XMS_ITS | Clinical Summary ---
Author Organization [facility] Address [address] [place] [address] Care Team Providers Care Choke Reamer Name Role Phone Nataliia Christine MD Primary Care Provider [phone] Allergies No known active allergies Medications Medication [...] age to complete this topic Care Teams Choke Reamer Relationship Specialty Start Date End Date Nataliia Christine MD [address] [place] [address] PCP - General Landscaping And Groundskeeping Laborer 03/29/18
--- OUTSIDE RECORDS SUMMARY | 2025-06-14 07:25 | XMS_ITS | Clinical Summary ---
Author Organization [facility] it Address [address] [place] [address] Care Team Providers Care Transit Operator Name Role Phone Nataliia Christine MD Primary Care Provider [phone] Surgical History Surgery Date Site/Laterality Comments FOOT SURGERY Bilateral PROCEDURE:FOOT SURGERY;COMMENT:bunionectomies COLONOSCOPY PROCEDURE:COLONOSCOPY HAND SURGERY 04/12/2018 Left PROCEDURE:PALMAR FASCIECTOMY;COMMENT:Procedure: FASCIECTOMY PALMAR; Surgeon: Raul Whalen MD; Location: [facility]; Service: Orthopedics; Laterality: Left; TRIGGER FINGER RELEASE 04/12/2018 Left PROCEDURE:TRIGGER FINGER RELEASE;COMMENT:Procedure: RELEASE TENDON SHEATH HAND; Surgeon: Raul Whalen MD; Location: [facility]; Service: Orthopedics; Laterality: Left; Medical [...] age to complete this topic Care Teams Transit Operator Relationship Specialty Start Date End Date Nataliia Christine MD PCP - General Bat Boy/Girl 03/29/18
[2025-06-14 11:39] LABS: Alanine Aminotransferase 35 U/L (0-31); Albumin Level 4.8 g/dL (3.5-5.0); Alkaline Phosphatase 52 U/L (39-117); Anion Gap 15 (12-20); Aspartate Amino Transferase 40 U/L (5-31); Blood Urea Nitrogen 10 mg/dL (9-16); Calcium 9.6 mg/dL (8.4-10.2); Carbon Dioxide 26 mmol/L (22-29); Chloride 101 mmol/L (96-108); Cholesterol 239 mg/dL (<200); Estimated Glomerular Filt Rate > 60; HDL Cholesterol 105 mg/dL (>40); Potassium 4.4 mmol/L (3.3-5.1); Sodium 138 mmol/L (135-145); Total Protein 7.6 g/dL (6.5-8.0); Triglycerides 43 mg/dL (<150)
== END 2025-06-14 07:23 | disposition home or self-care (01) ==
LOC: HO.HMGCLDS 07:22
PROVIDERS: PCP Internal Medicine; Visit Provider Internal Medicine
DX: J43.9 Emphysema, unspecified (principal); E78.5 Hyperlipidemia, unspecified
CPT/HCPCS: 36415; 80053; 80061